=== PATIENT | female | born 1965 | race Caucasian/White ===

== ENCOUNTER 2018-07-29 15:38 | Emergency (ER) | payer OTHER, SELFPAY ==
[2018-07-29 15:56] VITALS: BP 122/87; PULSE 92; RESP 22; TEMP 36.9; O2SAT 98; BMI 25.4
--- NOTE | 2018-07-29 16:01 | HMH.EDUTC ---
[facility] [place] Impression: Sinusitis Qualifiers: Sinusitis location: unspecified location Chronicity: acute Recurrence: non-recurrent Qualified Code(s): J01.90 - Acute sinusitis, unspecified Disposition: Home, Self-Care Condition on Discharge: Good Instructions: Sinusitis, DI for Sinusitis Additional Instructions: Drink plenty of fluids. Take tylenol or ibuprofen for pain or fever Take all the antibiotics as prescribed. Don't take the oral steroids until tomorrow since you had the shot in here today. Follow up with your regular doctor. GO TO THE ER FOR ANY WORSENING OR LIFE THREATENING SYMPTOMS Prescriptions: Ondansetron [Zofran 4mg ODT] 4 mg PO Q8HP PRN #20 tab.rapdis PRN Reason: Nausea methylPREDNISolone [Medrol] 4 mg PO DIRECTED 6 Days #21 tab.ds.pk Cefdinir [Omnicef 300mg Capsule] 300 mg PO BID #20 cap Benzonatate [Tessalon Perle 100mg Cap] 100 mg PO TIDP PRN #30 cap PRN Reason: Cough Referrals: Provider,Referral, MD [Primary Care Provider] - Forms: Work/School Release Time of Disposition: 16:16 Medical Decision Making - Medical Records Medical records reviewed: Yes: I reviewed the patient's medical records. - Robin Inquiry Pt receiving controlled substance: No Robin was queried for this patient: No Vital Signs: 07/29/18 15:56 07/29/18 16:22 Temperature 98.5 F 98.5 F Temperature Source Oral Pulse Rate 92 H Pulse Rate [Left Radial] 92 H Respiratory Rate 22 22 Blood Pressure 122/87 Blood Pressure [Left Arm] 122/87 Blood Pressure Mean [Left Arm] 98 Blood Pressure Source [Left Arm] Automatic Cuff Blood Pressure Position [Left Arm] Sitting 02 Sat by Pulse Oximetry 98 Oxygen Delivery Method Room Air Orders (Tests/Meds): ED MEDICATIONS Discontinued Medications Generic Name Dose Route Start Last Admin Trade Name Freq PRN Reason Stop Dose Admin Ceftriaxone Sodium 1 gm 07/29/18 16:02 07/29/18 16:14 Rocephin 1gm Vial IM 07/29/18 16:03 1 gm ONCE ONE Administration Protocol Lidocaine HCl 0 ml 07/29/18 16:02 07/29/18 16:14 Lidocaine 1% 10ml Mdv IM 07/29/18 16:03 2.1 ml ONCE ONE Administration Methylprednisolone Sodium Succinate 125 mg 07/29/18 16:02 07/29/18 16:15 Solu-Medrol 125mg/2ml Vial IM 07/29/18 16:03 125 mg ONCE ONE Administration [facility] [place] - General Stated complaint: head stopped up and soa Time Seen by Provider: 07/29/18 15:58 Mode of Arrival: Ambulatory Source of Information: Patient Limitations: No Limitations Description of Symptoms (Recalled from Triage Doc. by RN): C/O SORE THROAT, CHILLS, CHEST DISCOMFORT CAUSED BY COUGHING HEENT Symptoms (Recalled from RN notes): Yes (SORE THROAT) Resp Symptoms (Recalled from RN notes): Yes (COUGH) Skin Symptoms (Recalled from RN notes): No MS Symptoms (Recalled from RN notes): No Functional Status (Recalled from RN notes): N/A - Related Data Home Medications Medication Instructions Recorded Confirmed buPROPion HCl [Wellbutrin SR 150mg 150 mg PO BID 04/21/18 04/21/18 Tablet] cloNIDine HCl [cloNIDine 0.2mg 0.2 mg PO DAILY 04/21/18 04/21/18 Tablet] Previous Rx's Medication Instructions Recorded Ibuprofen [Ibuprofen 600mg 600 mg PO Q6HP PRN #30 tab 04/21/18 Tablet] Benzonatate [Tessalon Perle 100mg 100 mg PO TIDP PRN #30 cap 07/29/18 Cap] Cefdinir [Omnicef 300mg Capsule] 300 mg PO BID #20 cap 07/29/18 Ondansetron [Zofran 4mg ODT] 4 mg PO Q8HP PRN #20 tab.rapdis 07/29/18 methylPREDNISolone [Medrol] 4 mg PO DIRECTED 6 Days #21 07/29/18 tab.ds.pk Allergies Allergy/AdvReac Type Severity Reaction Status Date / Time No Known Allergies Allergy Verified 04/21/18 19:03 - Worker's Comp Is this a Worker's Comp case?: No [facility] History - Hepatitis A Screen Drug use history?: No High risk sexual behaviors?: No History of sexually transmitted infection?: No Currently employed?: No Childcare worker?:
--- NOTE | 2018-07-29 16:04 | ED_ITS ---
[facility] [place] Clinical Impression: Sinusitis Qualifiers: Sinusitis location: unspecified location Chronicity: acute Recurrence: non- recurrent Qualified Code(s): J01.90 - Acute sinusitis, unspecified Disposition: Home, Self-Care Condition on Discharge: Good Instructions: Sinusitis, DI for Sinusitis Additional Instructions: Drink plenty of fluids. Take tylenol or ibuprofen for pain or fever Take all the antibiotics as prescribed. Don't take the oral steroids until tomorrow since you had the shot in here today. Follow up with your regular doctor. GO TO THE ER FOR ANY WORSENING OR LIFE THREATENING SYMPTOMS Prescriptions: Ondansetron [Zofran 4mg ODT] 4 mg PO Q8HP PRN #20 tab.rapdis PRN Reason: Nausea methylPREDNISolone [Medrol] 4 mg PO DIRECTED 6 Days #21 tab.ds.pk Cefdinir [Omnicef 300mg Capsule] 300 mg PO BID #20 cap Benzonatate [Tessalon Perle 100mg Cap] 100 mg PO TIDP PRN #30 cap PRN Reason: Cough Referrals: Provider,Referral, MD [Primary Care Provider] - Forms: Work/School Release Time of Disposition: 16:16 Medical Decision Making - Medical Records Medical records reviewed: Yes: I reviewed the patient's medical records. - Robin Inquiry Pt receiving controlled substance: No Robin was queried for this patient: No Vital Signs: 07/29/18 15:56 07/29/18 16:22 Temperature 98.5 F 98.5 F Temperature Source Oral Pulse Rate 92 H Pulse Rate [Left Radial] 92 H Respiratory Rate 22 22 Blood Pressure 122/87 Blood Pressure [Left Arm] 122/87 Blood Pressure Mean [Left Arm] 98 Blood Pressure Source [Left Arm] Automatic Cuff Blood Pressure Position [Left Arm] Sitting 02 Sat by Pulse Oximetry 98 Oxygen Delivery Method Room Air Orders (Tests/Meds): ED MEDICATIONS Discontinued Medications Generic Name Dose Route Start Last Admin Trade Name Freq PRN Reason Stop Dose Admin Ceftriaxone Sodium 1 gm 07/29/18 16:02 07/29/18 16:14 Rocephin 1gm Vial IM 07/29/18 16:03 1 gm ONCE ONE Administration Protocol Lidocaine HCl 0 ml 07/29/18 16:02 07/29/18 16:14 Lidocaine 1% 10ml Mdv IM 07/29/18 16:03 2.1 ml ONCE ONE Administration Methylprednisolone Sodium Succinate 125 mg 07/29/18 16:02 07/29/18 16:15 Solu-Medrol 125mg/2ml Vial IM 07/29/18 16:03 125 mg ONCE ONE Administration [facility] [place] HPI - General Stated complaint: head stopped up and soa Time Seen by Provider: 07/29/18 15:58 Mode of Arrival: Ambulatory Source of Information: Patient Limitations: No Limitations Description of Symptoms (Recalled from Triage Doc. by RN): C/O SORE THROAT, CHILLS, CHEST DISCOMFORT CAUSED BY COUGHING HEENT Symptoms (Recalled from RN notes): Yes (SORE THROAT) Resp Symptoms (Recalled from RN notes): Yes (COUGH) Skin Symptoms (Recalled from RN notes): No MS Symptoms (Recalled from RN notes): No Functional Status (Recalled from RN notes): N/A - Related Data Home Medications Medication Instructions Recorded Confirmed buPROPion HCl [Wellbutrin SR 150mg 150 mg PO BID 04/21/18 04/21/18 Tablet] cloNIDine HCl [cloNIDine 0.2mg 0.2 mg PO DAILY 04/21/18 04/21/18 Tablet]
[2018-07-29 16:22] VITALS: BP 122/87; PULSE 92; RESP 22; TEMP 36.9; O2SAT 98
== END 2018-07-29 16:23 | disposition home or self-care (01) ==
LOC: ER 15:42 → UTC 15:45
PROVIDERS: Emergency Provider Nurse Practitioner Family
DX: J01.90 Acute sinusitis, unspecified (principal)
CPT/HCPCS: 96372; 99201

== ENCOUNTER 2018-08-12 20:01 | Emergency (ER) | payer OTHER, SELFPAY ==
[2018-08-12 20:03] VITALS: BP 155/97; PULSE 99; RESP 16; TEMP 36.8; O2SAT 97; BMI 24.2
--- NOTE | 2018-08-12 20:32 | PC.NURSE ---
PT DID NOT WANT TO WAIT ON CHEST XRAY
--- NOTE | 2018-08-12 20:33 | HMH.EDUTC ---
[facility] [place] Clinical Impression: Bronchitis Otitis media Qualifiers: Otitis media type: suppurative Chronicity: acute Laterality: left Recurrence: non-recurrent Spontaneous tympanic membrane rupture: without spontaneous rupture Qualified Code(s): H66.002 - Acute suppurative otitis media without spontaneous rupture of ear drum, left ear Disposition: Home, Self-Care Condition on Discharge: Good Instructions: Middle Ear Infection, Acute Bronchitis, DI for Acute Bronchitis Additional Instructions: Drink plenty of fluids. Take tylenol or ibuprofen for pain or fever Take all the antibiotics as prescribed. Follow up with your regular doctor. GO TO THE ER FOR ANY WORSENING OR LIFE THREATENING SYMPTOMS Prescriptions: Doxycycline Hyclate [Doxycycline 100mg Capsule] 100 mg PO BID 10 Days #20 cap predniSONE [Prednisone 20mg Tab] 20 mg PO DAILY 9 Days #12 tab Referrals: Provider,Referral, [Primary Care Provider] - Forms: Work/School Release Time of Disposition: 20:37 Medical Decision Making - Medical Records Medical records reviewed: Yes: I reviewed the patient's medical records. - Robin Inquiry Pt receiving controlled substance: No Robin was queried for this patient: No Vital Signs: 08/12/18 20:03 08/12/18 21:05 Temperature 98.3 F 98.3 F Temperature Source Oral Oral Pulse Rate 99 H Pulse Rate [Left Radial] 99 H Respiratory Rate 16 16 Blood Pressure 155/97 H Blood Pressure [Right Arm] 155/97 H Blood Pressure Mean [Right Arm] 116 Blood Pressure Source Automatic Cuff Blood Pressure Source [Right Arm] Automatic Cuff Blood Pressure Position Sitting Blood Pressure Position [Right Arm] Sitting 02 Sat by Pulse Oximetry 97 Oxygen Delivery Method Room Air Room Air Orders (Tests/Meds): ED MEDICATIONS Discontinued Medications Generic Name Dose Route Start Last Admin Trade Name Freq PRN Reason Stop Dose Admin Ceftriaxone Sodium 1 gm 08/12/18 20:31 08/12/18 20:38 Rocephin 1gm Vial IM 08/12/18 20:32 1 gm ONCE ONE Administration Protocol Lidocaine HCl 0 ml 08/12/18 20:31 08/12/18 20:38 Lidocaine 1% 10ml Mdv IM 08/12/18 20:32 2.1 ml ONCE ONE Administration Methylprednisolone Sodium Succinate 125 mg 08/12/18 20:31 08/12/18 20:38 Solu-Medrol 125mg/2ml Vial IM 08/12/18 20:32 125 mg ONCE ONE Administration ORDERS Category Date Time Status Chest XR 2 view (NOT portable) [XR chest 2V] Stat Exams 08/12/18 20:12 Stop Req [facility] [place] - General Stated complaint: ears Time Seen by Provider: 08/12/18 20:33 Mode of Arrival: Ambulatory Source of Information: Patient Limitations: No Limitations Description of Symptoms (Recalled from Triage Doc. by RN): LEFT EAR PAIN THAT STARTED THIS MORNING. STATES SHE ISN'T FEELING BETTER FROM PREVIOUS VISIT HEENT Symptoms (Recalled from RN notes): Yes Resp Symptoms (Recalled from RN notes): Yes Skin Symptoms (Recalled from RN notes): No MS Symptoms (Recalled from RN notes): No Functional Status (Recalled from RN notes): WNL - History of Present Illness Provider Complaint: she states that she did get some better after her last visit here, but over the past 2 days her ear pain has returned. - Related Data Home Medications Medication Instructions Recorded Confirmed buPROPion HCl [Wellbutrin SR 150mg 150 mg PO BID 04/21/18 04/21/18 Tablet] cloNIDine HCl [cloNIDine 0.2mg 0.2 mg PO DAILY 04/21/18 04/21/18 Tablet] Previous Rx's Medication Instructions Recorded Ibuprofen [Ibuprofen 600mg 600 mg PO Q6HP PRN #30 tab 04/21/18 Tablet] Benzonatate [Tessalon Perle 100mg 100 mg PO TIDP PRN #30 cap 07/29/18 Cap] Cefdinir [Omnicef 300mg Capsule] 300 mg PO BID #20 cap 07/29/18 Ondansetron [Zofran 4mg ODT] 4 mg PO Q8HP PRN #20 tab.rapdis 07/29/18 predniSONE [Prednisone 10mg Tab 10 mg PO UD DOSE PK 6 Days #1 pack 08/07/18 Dose-Pack] Doxycycline Hyclate [Doxycycline 100 mg
[2018-08-12 21:05] VITALS: BP 155/97; PULSE 99; RESP 16; TEMP 36.8; O2SAT 97
== END 2018-08-12 21:06 | disposition home or self-care (01) ==
PROVIDERS: Emergency Provider Nurse Practitioner Family
DX: H66.002 Acute suppurative otitis media without spontaneous rupture of ear drum, left ear (principal); J20.9 Acute bronchitis, unspecified
CPT/HCPCS: 96372; 99201

== ENCOUNTER → 2020-03-15 18:16 | Outpatient (CLI) | payer OTHER, SELFPAY ==
[2020-03-15 18:52] LABS: Alanine Aminotransferase 34 U/L (12-78); Albumin Level 4.6 g/dl (3.5-5.0); Albumin/Globulin Ratio 1.3 (1.1-1.8); Alkaline Phosphatase 109 U/L (38-126); Anion Gap 11.6 mEq/L (5-15); Aspartate Amino Transferase 40 U/L (14-36); Bilirubin,Total 0.5 mg/dl (0.2-1.3); Blood Urea Nitrogen 13 mg/dl (7-17); Calcium 9.9 mg/dl (8.4-10.2); Carbon Dioxide 33 mmol/L (22.0-30.0); Chloride 100 mmol/L (98-107); Estimated Glomerular Filt Rate 75 ml/min (>60); GFR (African American) 91 ML/MIN (>60); Globulin 3.5 g/dL (1.3-3.2); Glucose 116 mg/dl (74-100); Potassium 4.6 mmoL/L (3.5-5.1); Sodium 140 mmol/L (136-145); Total Protein,Serum 8.1 g/dl (6.3-8.2)
[2020-03-15 19:25] LABS: Thyroid Stimulating Hormone 1.28 uIU/mL (0.465-4.68)
[2020-03-15 19:49] LABS: Vitamin B12 > 1000 pg/mL (239-931)
== END ==
DX: M62.838 Other muscle spasm (principal); E53.8 Deficiency of other specified B group vitamins; Z13.29 Encounter for screening for other suspected endocrine disorder
CPT/HCPCS: 36415; 80053; 82607; 84439; 84443

== ENCOUNTER 2020-12-26 18:10 | Emergency (ER) | payer OTHER, SELFPAY ==
[2020-12-26 18:50] VITALS: BP 156/84; PULSE 91; RESP 20; TEMP 37.4; O2SAT 95; BMI 24.2
[2020-12-26 19:58] LABS: Coronavirus 19, PCR Not Detected (NotDetected); Influenza A, PCR Not Detected (NotDetected); Influenza B, PCR Not Detected (NotDetected)
--- NOTE | 2020-12-26 20:09 | HMH.EDUTC ---
[facility] [place] Clinical Impression: Head ache Qualifiers: Headache type: unspecified Headache chronicity pattern: acute headache Intractability: not intractable Qualified Code(s): R51.9 - Headache, unspecified Disposition: Still a Patient Condition on Discharge: Fair Referrals: Provider,Referral, [Primary Care Provider] - Time of Disposition: 20:11 Medical Decision Making - Medical Records Medical records reviewed: No: I reviewed the patient's medical records. - Rboin Inquiry Pt receiving controlled substance: No Vital Signs: 12/26/20 18:50 Temperature 99.4 F Temperature Source Oral Pulse Rate [Right Brachial] 91 H Respiratory Rate 20 Blood Pressure [Right Arm] 156/84 H Blood Pressure Mean [Right Arm] 108 Blood Pressure Source [Right Arm] Automatic Cuff Blood Pressure Position [Right Arm] Sitting 02 Sat by Pulse Oximetry 95 Oxygen Delivery Method Room Air Orders (Tests/Meds): ORDERS Category Date Time Status Rapid PCR Covid and Flu A/B Stat Lab 12/26/20 19:51 Received Medical Decision Narrative: she was sent to the er due to the severity of her headache and her unsteadiness when she walks. [facility] [place] HPI - General Stated complaint: chills,vomiting,CAMPO Time Seen by Provider: 12/26/20 19:20 Mode of Arrival: Ambulatory Source of Information: Patient Limitations: No Limitations Description of Symptoms (Recalled from Triage Doc. by RN): PATIENT C/O SEVERE HEADACHE, NAUSEA, WEAKNESS WHEN STANDING, LIGHT-HEADED AND DIZZINESS THAT STARTED YESTERDAY HEENT Symptoms (Recalled from RN notes): Yes Resp Symptoms (Recalled from RN notes): No Skin Symptoms (Recalled from RN notes): No MS Symptoms (Recalled from RN notes): No Functional Status (Recalled from RN notes): WNL - History of Present Illness Provider Complaint: She states that she has been having a very severe head ache since earlier today. She has been dizzy and unsteady on her feet also. She denies any fever, but she does admit to feeling very bad. - Related Data Home Medications Medication Instructions Recorded Confirmed buPROPion HCL [Wellbutrin SR 150mg 150 mg PO BID 04/21/18 12/26/20 Tablet] cloNIDine HCL [cloNIDine 0.2mg 0.2 mg PO DAILY 04/21/18 12/26/20 Tablet] Buprenorphine HCl/Naloxone HCl 1.5 each SL DAILY 12/26/20 12/26/20 [Buprenorphin-Naloxon 8-2 mg Sl] Allergies Allergy/AdvReac Type Severity Reaction Status Date / Time No Known Allergies Allergy Verified 04/21/18 19:03 - Worker's Comp Is this a Worker's Comp case?: No [facility] History - Hepatitis A Screen Drug use history?: No High risk sexual behaviors?: No History of sexually transmitted infection?: No Currently employed?: No Childcare worker?: No Do you have indoor plumbing?: Yes Do you have electricity?: Yes Attestation statement:: This patient has been screened for Hepatitis A risk factors. I have reviewed the patient's past medical history: Yes Laterality Cases: Bilateral: Tonsillectomy - Social History Smoking Status: Never smoker Alcohol Intake: never Occupational Status: other Housing: house ROS Obtained: Yes All systems reviewed & no additional complaints - Constitutional Constitutional: Reports as per HPI - Eyes Eyes: Reports blurry vision, Denies eye discharge - ENT Ears, Nose, Mouth, and Throat: Reports dizziness, Reports otalgia, Denies sore throat, Reports vertigo/dizziness - Cardiovascular Cardiovascular: Denies chest pain - Respiratory Respiratory: Denies chest congestion, Reports cough, Denies dyspnea, Denies stridor, Denies wheezing - Gastrointestinal Gastrointestingal: Reports: nausea. Denies: abdominal pain, diarrhea, vomiting Physical Exam - General General appearance: alert, in no apparent distress - Head Head exam: atraumatic, normocephalic, normal inspection - Eye Eye exam: Present: normal appearance, PERRL, EOMI - ENT ENT exam: Present: normal exam, normal oropharynx, mucous mem
--- NOTE | 2020-12-26 20:10 | PC.NURSE ---
PATIENT SENT TO ER PER Tara FERGUSON APRN FOR FURTHER EVALUATION. REPORT GIVEN TO Marion TILLMAN RN
[2020-12-26 20:20] VITALS: BP 149/80; PULSE 90; RESP 18; TEMP 37.6; O2SAT 98; BMI 24.2
[2020-12-26 20:20] LABS: UTC Strep Screen (Rapid) Negative (Negative)
--- NOTE | 2020-12-26 20:28 | PC.NURSE ---
NIH score of 0
[2020-12-26 20:48] LABS: Basophils % 0.5 % (0.1-2.0); Eosinophils # 0.1 K/mm3 (0.0-0.4); Eosinophils % 0.7 % (0.1-12.0); Hemoglobin 14.2 g/dL (12.2-16.2); Lymphocytes # 0.9 K/mm3 (0.7-4.5); Lymphocytes % 12.6 % (10-50); Mean Corpuscular HGB Conc 33.9 g/dL (31.8-35.4); Mean Corpuscular Hemoglobin 29.8 pg (27.0-31.2); Mean Platelet Volume 7.6 fl (7.4-10.4); Monocytes # 0.4 K/mm3 (0.1-1.0); Monocytes % 5.8 % (1.7-9.3); Neutrophils # 5.8 K/mm3 (1.8-7.8); Neutrophils % 80.5 % (37.0-80.0); Platelet Count 321 K/mm3 (142-424); Red Blood Count 4.77 M/mm3 (4.20-5.40); White Blood Count 7.2 K/mm3 (4.8-10.8)
[2020-12-26 20:54] LABS: Alanine Aminotransferase 17 U/L (12-78); Albumin Level 4.2 g/dl (3.5-5.0); Albumin/Globulin Ratio 1.2 (1.1-1.8); Alkaline Phosphatase 111 U/L (38-126); Aspartate Amino Transferase 35 U/L (14-36); Bilirubin,Total 0.8 mg/dl (0.2-1.3); Blood Urea Nitrogen 10 mg/dl (7-17); Calcium 9.4 mg/dl (8.4-10.2); Carbon Dioxide 30 mmol/L (22.0-30.0); Chloride 100 mmol/L (98-107); Creatinine Clearance Estimated 92 mL/min (50-200); Estimated Glomerular Filt Rate 104 ml/min (>60); GFR (African American) 126 ML/MIN (>60); Globulin 3.4 g/dL (1.3-3.2); Glucose 112 mg/dl (74-100); Total Protein,Serum 7.6 g/dl (6.3-8.2)
--- NOTE | 2020-12-26 20:58 | PC.NURSE ---
Pt. refused CT scan. MD bhatti.
[2020-12-26 20:59] LABS: C-Reactive Protein 14.9 mg/L (0-4)
[2020-12-26 21:02] LABS: Sodium 138 mmol/L (136-145)
[2020-12-26 21:12] LABS: Procalcitonin 0.077 ng/mL (0.0-2.0)
[2020-12-26 21:21] LABS: Erythrocyte Sedimentation Rate 57 mm/hr (0-30)
--- NOTE | 2020-12-26 21:25 | HMH.EDHA ---
ED Disposition Clinical Impression: Head ache Qualifiers: Headache type: unspecified Headache chronicity pattern: acute headache Intractability: not intractable Qualified Code(s): R51.9 - Headache, unspecified Disposition: Home, Self-Care Condition on Discharge: Good Instructions: DI for Headache Additional Instructions: call pcp in am and trial of meds Prescriptions: cephALEXin [cephALEXin 500mg capsule*] 500 mg PO TID #30 cap Transmission Status: Pending to [facility] predniSONE [Prednisone 20mg Tab] 20 mg PO BID #10 tab Transmission Status: Pending to [facility] Ketorolac Tromethamine [Toradol 10mg tablet] 10 mg PO Q6HP PRN #8 tab MDD 40mg/day PRN Reason: Moderate To Severe Pain Transmission Status: Pending to [facility] Referrals: Provider,Referral, [Primary Care Provider] - - Critical Care Critical Care Time: No Attestation: On 12/26/20, the high probability of a clinically significant, sudden or life threatening deterioration of the following system(s) required my full and direct attention, intervention and personal management. The time I documented below is in addition to time spent performing reported procedures but includes the following listed in this critical care notation. Medical Decision Making - Medical Records Medical records reviewed: Yes: I reviewed the patient's medical records. - Robin Inquiry Pt receiving controlled substance: No Vital Signs: 12/26/20 18:50 12/26/20 20:20 Temperature 99.4 F 99.6 F Temperature Source Oral Oral Pulse Rate [Right Brachial] 91 H 90 Respiratory Rate 20 18 Blood Pressure [Right Arm] 156/84 H 149/80 H Blood Pressure Mean [Right Arm] 108 103 Blood Pressure Source [Right Arm] Automatic Cuff Automatic Cuff Blood Pressure Position [Right Arm] Sitting Sitting 02 Sat by Pulse Oximetry 95 98 Oxygen Delivery Method Room Air Room Air - Lab Data Lab results reviewed: Yes: I reviewed the patient's lab results. Lab Results 12/26/20 19:40: Strep Scn [facility] Negative 12/26/20 19:51: SARS-CoV-2 (PCR) Not detected, Influenza A Untype (PCR) Not detected, Influenza Type B (PCR) Not detected 12/26/20 20:30: WBC 7.2, RBC 4.77, Hgb 14.2, Hct 42.0, MCV 88.0, MCH 29.8, MCHC 33.9, RDW 13.0, Plt Count 321, MPV 7.6, Neut % (Auto) 80.5 H, Lymph % (Auto) 12.6, [place] % (Auto) 5.8, Eos % (Auto) 0.7, Baso % (Auto) 0.5, Neut # (Auto) 5.8, Lymph # (Auto) 0.9, [place] # (Auto) 0.4, Eos # (Auto) 0.1, Baso # (Auto) 0.0, ESR 57 H 12/26/20 20:30: Sodium 138, Potassium 4.0, Chloride 100, Carbon Dioxide 30, Anion Gap 12.0, BUN 10, Creatinine 0.60, Estimated Creat Clear 92, Estimated GFR 104, Est GFR ( Amer) 126, Glucose 112 H, Calcium 9.4, Total Bilirubin 0.8, AST 35, ALT 17, Alkaline Phosphatase 111, C-Reactive Protein 14.9 H, Total Protein 7.6, Albumin 4.2, Globulin 3.4 H, Albumin/Globulin Ratio 1.2, Procalcitonin 0.077 Result diagrams: 12/26/20 20:30 12/26/20 20:30 Orders (Tests/Meds): ED MEDICATIONS Generic Name Dose Route Start Last Admin Trade Name Freq PRN Reason Stop Dose Admin Ceftriaxone Sodium 1 gm/ 50 mls @ 100 mls/hr 12/26/20 21:45 12/26/20 21:53 Sodium Chloride IV 01/09/21 21:44 100 mls/hr Q24H TREVOR Administration Discontinued Medications Generic Name Dose Route Start Last Admin Trade Name Freq PRN Reason Stop Dose Admin Lactated Ringer's 1,000 mls @ 999 mls/hr 12/26/20 20:30 12/26/20 20:35 Lactated Ringer's 1000 Ml Bag IV 12/26/20 21:30 999 mls/hr .Q1H1M TREVOR Administration Ketorolac Tromethamine 30 mg 12/26/20 20:29 12/26/20 20:35 Ketorolac 30mg/Ml Vial IV 12/26/20 20:30 30 mg ONCE ONE Administration Methylprednisolone Sodium Succinate 125 mg 12/26/20 20:29 12/26/20 20:35 Methylprednisolone Sod Succ 125mg Vial IV 12/26/20 20:30 125 mg ONCE ONE Administration Ondansetron HCl 4 mg 12/26/20 20:35 12/26/20 20:36 Ondansetron 4mg/2ml Vial IV 12/26/20 20:36 4
[2020-12-26 22:28] VITALS: BP 132/74; PULSE 73; RESP 20; TEMP 36.9; O2SAT 94
== END 2020-12-26 22:35 | disposition home or self-care (01) ==
LOC: UTC 20:11 → ER 20:20
PROVIDERS: Emergency Medicine; Emergency Provider Nurse Practitioner Family
DX: R42 Dizziness and giddiness (principal); R51.9 Headache, unspecified; Z20.822 Contact with and (suspected) exposure to COVID-19
CPT/HCPCS: 80053; 84145; 85025; 85651; 86140; 87040; 87880; 96365; 96375; 99282; C9803; J2405; U0003; U0005

== ENCOUNTER 2024-06-10 17:43 | Outpatient (CLI) | payer BC, SELFPAY ==
--- NOTE | 2024-06-10 17:52 | XR_ITS ---
PROCEDURE INFORMATION: Exam: XR Right Shoulder Exam date and time: 06/10/2024 5:53 PM Age: 58 years old Clinical indication: Other: Chronic bilateral shoulder pain TECHNIQUE: Imaging protocol: Radiologic exam of the right shoulder. Views: 2 or more views. COMPARISON: CR Chest 10/03/2018 4:06 PM FINDINGS: Bones/joints: Normal. Soft tissues: Normal. IMPRESSION: No acute findings.
--- NOTE | 2024-06-10 17:52 | XR_ITS ---
PROCEDURE INFORMATION: Exam: XR Left Shoulder Exam date and time: 06/10/2024 5:53 PM Age: 58 years old Clinical indication: Pain; Shoulder; Bilateral; Additional info: Chronic bilateral shoulder pain TECHNIQUE: Imaging protocol: Radiologic exam of the left shoulder. Views: 2 or more views. COMPARISON: CR XR SHOULDER LT MIN 2V 06/10/2024 5:53 PM FINDINGS: Bones/joints: Small marginal osteophytes and degenerative changes involving the left AC joint. No evidence of acute osseous abnormality. Soft tissues: Normal. IMPRESSION: 1. Small marginal osteophytes and degenerative changes involving the left AC joint. 2. No evidence of acute osseous abnormality.
== END 2024-06-10 23:59 | disposition home or self-care (01) ==
PROVIDERS: PCP Family Medicine; Visit Provider Family Medicine
DX: M25.511 Pain in right shoulder (principal); M25.512 Pain in left shoulder; G89.29 Other chronic pain
CPT/HCPCS: 73030

== ENCOUNTER 2024-12-26 14:07 | Observation (INO) | payer BC, SELFPAY ==
--- OUTSIDE RECORDS SUMMARY | 2023-07-01 11:06 | XMS_ITS | Encounter Summary ---
Author Organization [facility] Address [address] [place] [id number] Care Team Providers Care Pecan Gatherer Name Role Phone Edson Jones MD Primary Care Provider [phone] Encounter Details Date Type Department Care Team (Late Contact Info) Description 07/01/2023 11:06 AM EDT Hospital Encounter [facility] PUL[facility]ITICAL CARE MEDICINE [address] [place] [address] Social History Tobacco Use Types [...] on file documented as of this encounter Functional Status documented as of this encounter Plan of Treatment Upcoming Encounters Date Type Department Care Team (Late st Contact Info) Description 03/27/2025 3:45 PM EST Office Visit [facility] RHE[facility]ATOLOGY [address] [place] [address] Otoniel Krishnamurthy DO [address] [facility] [address] [place] [address] documented as of this encounter Procedures Procedure [...] MD 07/01/2023 4:33 PM EDT Workstation ID: [id number] Narrative 07/01/2023 4:33 PM EDT XR CHEST [...] MD 07/01/2023 4:33 PM EDT Workstation ID: [id number] Stephanie Luo APRN IMG DIAGNOSTIC IMAGING ORDER ERASMO Final Result documented in this encounter Visit Diagnoses Not on filedocumented in this encounter Care Teams Pecan Gatherer Relationship Specialty Start Date End Date Edson Jones MD [address] [place] [address] PCP - General Family Medicine 10/07/22 documented as of this encounter
[2024-12-26] VITALS (13 sets, daily range): BP systolic 113–166; BP diastolic 59–83; PULSE 88–120; RESP 13–19; TEMP 37–37.2; O2SAT 94–99; BMI 26.2; BMI 24.5
--- NOTE | 2024-12-26 13:59 | ECG_ITS ---
APPROVED REPORT Exam: Resting ECG HR:125 bpm ECG Measurements Heart Rate 125 AXES FL 128 P 53 QRSd 70 QRS 45 QT 336 T -50 QTc 410 Conclusion SINUS TACHYCARDIA LOW QRS VOLTAGE IN PRECORDIAL LEADS [QRS DEFLECTION < 1.0 mV IN CHEST LEADS] ST DEVIATION AND MODERATE T-WAVE ABNORMALITY, CONSIDER ANTEROLATERAL ISCHEMIA [-0.1+ mV T-WAVE IN V3-V6] ST DEVIATION AND MODERATE T-WAVE ABNORMALITY, CONSIDER INFERIOR ISCHEMIA [-0.1+ mV T-WAVE IN II/aVF] ABNORMAL ECG UNCONFIRMED REPORT Electronically signed by : DEZ KRUEGER, 12/27/2024 06:27:02
--- NOTE | 2024-12-26 14:22 | ED_ITS ---
<Statement entered by Maged Quinones MD - 12/26/24 20:19> I was consulted by the ROBLES, and we discussed the complexity of the problems being addressed. I approve the treatment and management plan for this patient's care in the emergency department, thus performing a substantive portion of the medical decision making. Maged Quinones MD Discharge Plan Disposition Patient Disposition: Admitted Condition: Fair Prescriptions Prescriptions: No Action bupropion HCl 150 MG Tablet 150 mg PO BID clonidine HCl 0.2 MG Tablet 0.2 mg PO DAILY buprenorphine-naloxone 1 EACH tablet, sublingual 1.5 each SL DAILY prednisone 20 MG tablet 20 mg PO BID Qty: 10 0RF cephalexin 500 MG capsule 500 mg PO TID Qty: 30 0RF ketorolac 10 MG tablet 10 mg PO Q6HP MDD 40mg/day PRN (Reason: Moderate To Severe Pain) Qty: 8 0RF Rx Instructions: Therapy initiated with IV/IM dose Referrals Follow up/Referrals: Edson Jones MD [Primary Care Provider, Medical] - See instructions Clinical Impressions Clinical Impression: Proctocolitis Print Language Print Language: Latvian Discharge ED Provider: Maged Quinones General Adult HPI General Chief complaint: Abdominal Pain Stated complaint: chest pain Time Seen by Provider: 12/26/24 14:21 Mode of Arrival: Ambulatory Source of Information: Patient Description of Symptoms (Recalled from ER Triage Doc. by RN): PT PRESENTS TO ED FOR EPIGASTRIC PAIN WITH NAUSEA AND DIARRHEA THAT BEGAN A FEW HOURS AGO. PT REPORTS PAIN 9/10. History of Present Illness HPI narrative: 59-year-old female presents emergency department with complaints of abdominal pain with diarrhea since approximately 530 this morning. She denies vomiting but reports she has been nauseated. She denies fevers. She reports that she takes Suboxone daily for opiate recovery. She states that she thinks her last bowel movement was approximately 1 week ago. Related Data Home Medications ?Medication ?Instructions ?Recorded ?Confirmed bupropion HCl 150 mg tablet,12 hr 150 mg PO BID Depres donald 04/21/18 12/26/20 sustained-release clonidine HCl 0.2 mg tablet 0.2 mg PO DAILY ANXIETY/HT N 04/21/18 12/26/20 buprenorphine 8 mg-naloxone 2 mg 1.5 each SL DAILY . 1 12/26/20 sublingual tablet Previous Rx's ?Medication ?Instructions ?Recorded cephalexin 500 mg capsule 500 mg PO TID #30 caps 12/26 ketorolac 10 mg tablet 10 mg PO Q6HP PRN Moderate T o 12/26/20 Severe Pain #8 tabs prednisone 20 mg tablet 20 mg PO BID #10 tabs Allergies Allergy/AdvReac Type Severity Reaction Status Date / Time No Known Allergies Allergy Verified 04/21/18 19:03 [facility] Disclaimer: The information contained in this section may have been updated after the patient was seen, as this information can be updated by other users. Social History Smoking Status: Never smoker second hand exposure: No alcohol intake: never current occupational status: other Travel in the last 8 weeks?: None housing: house Have you lived/traveled outside US in past 30 days?: No Contact w/someone who lives/traveled outside US past 30 days?: No Exposure to someone with infectious disease in past 14 days?: No Do you have a fever (greater than 100.4 F or 38 C)?: No Have you tested positive for COVID-19?: No Exposed to someone with COVID-19 in past 14 days?: No Do you have a sore throat?: No Do you have a cough?: No Do you have any weakness?: No Do you have any diarrhea?: No Are you experiencing any unusual bleeding?: No Do you have any muscle aches/pain?: No Do you have any abdominal pain?: No Are you experiencing loss of taste or smell?: No Other Medical History Have you received the Flu Vaccine for this season: No Have you received the Pneumonia Vaccine: No ROS Obtained: Yes other Gastrointestinal Gastrointestingal: Reports abdominal pain, constipation, diarrhea and nausea Physical Exam Narrative Physical exam: General: Awake, aware, in no acute distress HEENT: Normocephalic, no evidence of trauma CV: RRR, no murmurs, rubs, or gallops Pulm: CTA bilaterally with no rhonchi, rales, wheezes ABD: Patient with hypoactive bowel sounds in all quadrants. Patient reports tenderness on palpation of all quadrants as well. Psych, appropriate mood and affect General General appearance: alert Respiratory Respiratory exam: Present normal lung sounds bilaterally Cardiovascular Cardiovascular exam: Present regular rate Neurological Exam Neurological exam: Present alert Medical Decision Making Medical Records Screening: Per USPSTF and CDC recommendations, given the prevalence of disease in our region, it is our hospital?s policy to screen for HIV and viral Hepatitis for all patients aged 18 and over and those with ongoing risk factors. Robin Inquiry Pt receiving controlled substance: No Vital Signs: 12/26/24 14:09 12/26/24 14:09 12/26/24 14:15 Temperature 98.9 F 98.9 F Temperature Source Oral Pulse Rate 120 H 111 H Pulse Rate [Right] 120 H Respiratory Rate 18 18 19 Blood Pressure 166/81 H 157/81 H Blood Pressure [Left Arm] 166/81 H Blood Pressure Mean [Left Arm] 109 02 Sat by Pulse Oximetry 96 96 94 L 12/26/24 14:30 12/26/24 14:45 12/26/24 15:00 Temperature Temperature Source Pulse Rate 111 H 100 H 98 H Pulse Rate [Right] Respiratory Rate 14 14 17 Blood Pressure 149/83 H 144/76 H 123/65 Blood Pressure [Left Arm] Blood Pressure Mean [Left Arm] 02 Sat by Pulse Oximetry 94 L 97 94 L 12/26/24 15:15 12/26/24 15:30 12/26/24 16:00 Temperature Temperature Source Pulse Rate 94 H 95 H 96 H Pulse Rate [Right] Respiratory Rate 18 18 14 Blood Pressure 122/64 115/62 115/61 Blood Pressure [Left Arm] Blood Pressure Mean [Left Arm] 02 Sat by Pulse Oximetry 95 97 96 12/26/24 16:15 Temperature Temperature Source Pulse Rate 96 H Pulse Rate [Right] Respiratory Rate 13 Blood Pressure 119/63 Blood Pressure [Left Arm] Blood Pressure Mean [Left Arm] 02 Sat by Pulse Oximetry 94 L Lab Data Lab Results 12/26/24 14:25: WBC 22.3 H*, RBC 5.00, Hgb 15.0, Hct 43.5, MCV 87.0, MCH 30.0, MCHC 34.5, RDW 11.9, Plt Count 437 H, MPV 9.3, Neut % (Auto) 91.6 H, Lymph % (Auto) 3.0 L, [place] % (Auto) 4.7, Eos % (Auto) 0.0 L, Baso % (Auto) 0.2, Neut # (Auto) 20.5 H, Lymph # (Auto) 0.7, [place] # (Auto) 1.1 H, Eos # (Auto) 0.0, Baso # (Auto) 0.1, Total Counted 100, Neutrophils % (Manual) 88 H, Band Neutrophils % 3.0, Lymphocytes % (Manual) 5 L, Monocytes % (Manual) 4, Platelet Estimate Normal, RBC Morphology Normal, Sodium 135 L, Potassium 3.9, Chloride 100, Carbon Dioxide 28, Anion Gap 10.9, BUN 22 H, Creatinine 0.80, Estimated Creat Clear 71, Estimated GFR 74, Est GFR ( Amer) 89, Glucose 170 H, Calcium 9.0, Magnesium 2.0, Total Bilirubin 0.7, AST 37 H, ALT 31, Alkaline Phosphatase 123, Total Protein 7.8, Albumin 3.4 L, Globulin 4.4 H, Albumin/Globulin Ratio 0.8 L, Lipase 56 12/26/24 15:35: Lactate 2.0 12/26/24 16:25: Urine Color Yellow, Urine Appearance Clear, Urine pH 5.0, Ur Specific [place] >= 1.030, Urine Protein Negative, Urine Glucose (UA) Negative, Urine Ketones Trace, Urine Blood Negative, Urine Nitrate Negative, Urine Bilirubin 2+ A, Urine Urobilinogen 1.0, Ur Leukocyte Esterase Negative, Urine RBC None, Urine WBC Occasional, Ur Squamous Epith Cells None, Calcium Oxalate Crystal 1+, Urine Bacteria Trace 12/26/24 14:25 12/26/24 14:25 Orders (Tests/Meds): ED MEDICATIONS Discontinued Medications Generic Name Dose Route Start Last Admin Trade Name Freq PRN Reason Stop Dose Admin Dicyclomine HCl 20 mg 12/26/24 16:53 12/26/24 17:34 Dicyclomine 20 Mg/2ml Vial IM 12/26/24 16:54 20 mg ONCE ONE Administration Sodium Chloride 1,000 mls @ 999 mls/hr 12/26/24 14:22 12/26/24 16:10 Sod Chlor 0.9% 1000ml Bag IV 12/26/24 15:22 Infused .Q1H1M ONE Infusion Iopamidol 75 ml 12/26/24 16:39 12/26/24 16:40 Iopamidol-370 (76%);100ml Bottle IV 12/26/24 16:40 75 ml ONCE ONE Administration Ketorolac Tromethamine 15 mg 12/26/24 14:27 12/26/24 14:41 Ketorolac 15mg/Ml Vial IV 12/26/24 14:28 15 mg ONCE ONE Administration Ondansetron HCl 4 mg 12/26/24 14:27 12/26/24 14:40 Ondansetron 4mg/2ml Vial IV 12/26/24 14:28 4 mg ONCE ONE Administration Ondansetron HCl 4 mg 12/26/24 16:50 12/26/24 17:34 Ondansetron 4mg/2ml Vial IV 12/26/24 16:51 4 mg ONCE ONE Administration Sodium Chloride 10 ml 12/26/24 16:39 12/26/24 16:40 Sodium Chloride 0.9% 10ml Syr (Rad Only) IV 12/26/24 16:40 10 ml ONCE ONE Administration ORDERS Category Date Time Status CT abdomen pelvis w con Stat Cat Scan 12/26/24 14:23 Completed CBC w/Auto Diff [Complete Blood Count Auto Diff] Stat Lab 12/26/24 14:25 Completed CMP [Comprehensive Metabolic Panel] Stat Lab 12/26/24 14:25 Completed Lactic Acid Stat Lab 12/26/24 15:35 Completed Lipase Stat Lab 12/26/24 14:25 Completed Magnesium Stat Lab 12/26/24 14:25 Completed Urinalysis and Microscopic Stat Lab 12/26/24 16:25 Completed Blood Culture Stat Micro 12/26/24 15:39 Received Medical Decision Narrative: Initial impression of presenting illness: 59-year-old female presents emergency department complaints of abdominal pain with nausea and diarrhea at approximately 530 this morning. She denies fevers. She reports she does take Suboxone for opiate recovery. She reports her last bowel movement was approximately 1 week ago. Differential diagnosis includes but is not limited to: Constipation, bowel obstruction, diverticulitis, gastroenteritis Patient arrives hemodynamically stable, afebrile, without respiratory distress with vital signs interpreted by myself. Initial physical exam reveals hypoactive bowel sounds in all quadrants with diffuse tenderness on palpation of abdomen. Rest of exam is unremarkable. Initial diagnostic plan: Laboratory studies including urinalysis, CT of abdomen pelvis with IV contrast, normal saline bolus for hydration, Zofran for nausea, Toradol for pain Patient's son concerned that patient has something wrong with her right leg. Patient reports that she was bit by something in September and followed up with her primary care provider who recommended she come to ER for IV antibiotics. Patient states she never came to ER for antibiotics. She reports that intermittently she will have erythema and pain to her leg. I do not appreciate any abnormalities on today's exam. Sensations intact with 2+ pulses. No tenderness on palpation of the leg. Results from initial plan were reviewed and interpreted by myself, pertinent positives include: White blood cell count 22.3, rest of laboratory studies including lactic acid was negative. No evidence of urinary tract infection. CT of abdomen pelvis with IV contrast shows severe proctocolitis likely of infectious/inflammatory etiology. There is also enlarged lymph nodes in the right inguinal region, right pelvic sidewall, and right external iliac chain. Interventions in the ED: Patient was given normal saline bolus for hydration as well as Toradol and Bentyl for pain and Zofran for nausea. Patient was made aware of the results and the findings, upon reevaluation patient has remained stable throughout stay, symptoms are unchanged at this time. Patient continues to complain of nausea abdominal pain. Consultation/discussion with other physicians: Spoke with hospitalist Dr. Ness regarding patient's workup findings and presenting complaint. He was agreeable to accept patient to [facility] for further treatment of her infection recommended starting patient on meropenem 1 g Q8. Disposition: Reviewed findings today's workup with patient and informed her that she has severe proctocolitis. Patient states she is not feeling any better and does not feel that she is safe to go home. Advised patient that we will admit her to [facility] for treatment of her infection. Patient was agreeable to admission at this time. Critical Care Critical Care Time Critical Care Time: No
--- NOTE | 2024-12-26 14:23 | CT_ITS ---
PROCEDURE INFORMATION: Exam: CT Abdomen And Pelvis With Contrast Exam date and time: 12/26/2024 4:36 PM Age: 59 years old Clinical indication: Abdominal pain; Additional info: Abd pain TECHNIQUE: Imaging protocol: Computed tomography of the abdomen and pelvis with contrast. Radiation optimization: All CT scans at this facility use at least one of these dose optimization techniques: automated exposure control; mA and/or kV adjustment per patient size (includes targeted exams where dose is matched to clinical indication); or iterative reconstruction. Contrast material: ISOVUE; Contrast volume: 75 ml; Contrast route: IV; COMPARISON: CT - ABDPELW CT abdomen pelvis w con 10/03/2018 3:59 PM FINDINGS: Lungs: Lung bases are clear. Diaphragm: Small hiatal hernia. Liver: 1.4 cm hypodense lesion in the right hepatic lobe (series 3, image 38), previously 1 cm. Stable 5 mm focus of hyperenhancement in the right lower lobe (series 3, image 28). Nonemergent ultrasound follow-up is recommended. The liver is otherwise unremarkable. Gallbladder and biliary ducts: Gallbladder is normal. Slightly prominent 8 mm CBD. No radiopaque filling defects. Most probably physiologic, though consider correlation with biliary levels. Pancreas: The pancreas is normal. Spleen: The spleen is normal. An accessory splenule is present. Adrenal glands: Adrenal glands are normal in size and morphology. No masses or suspicious nodules. Kidneys and ureters: The kidneys are normal. No hydroureter. Stomach and bowel: Mucosal hyperenhancement and wall thickening throughout the rectum, sigmoid, descending, transverse, and ascending colon. No other bowel wall thickening. There is no evidence of intestinal obstruction. Stomach is decompressed and difficult to evaluate. Duodenum is unremarkable. Appendix: A normal appendix is identified. Intraperitoneal space: There is no evidence of free intraperitoneal or pelvic fluid. No intraperitoneal fluid collections. There is no free intraperitoneal air. Vasculature: Portal venous system is patent. The vasculature is normal. Lymph nodes: Enlarged lymph nodes in the right inguinal region, right pelvic sidewall, and right external iliac chain measuring 1.3 cm, 8 mm, and 9 mm respectively. No other adenopathy. Urinary bladder: Bladder is decompressed and difficult to evaluate. Reproductive: There has been a hysterectomy. Bones/joints: Mild multilevel degenerative changes of the spine. No acute skeletal abnormality or aggressive osseous lesion. Soft tissues: No acute soft tissue findings. IMPRESSION: 1. Severe proctocolitis, likely of infectious/inflammatory etiology. 2. Enlarged lymph nodes in the right inguinal region, right pelvic sidewall, and right external iliac chain measuring 1.3 cm, 8 mm, and 9 mm respectively. Most consistent with reactive nodes. 3. Incidental findings as above.
[2024-12-26 14:29] LABS: Hematocrit 43.5 % (37.0-47.0); Hemoglobin 15.0 g/dL (12.2-16.2); Immature Granulocytes % 0.5 %; Mean Corpuscular HGB Conc 34.5 g/dL (31.8-35.4); Mean Corpuscular Hemoglobin 30.0 pg (27.0-31.2); Mean Corpuscular Volume 87.0 fl (81-99); Nucleated Red Blood Cells % 0 %; Platelet Count 437 K/mm3 (142-424); Red Blood Count 5.00 M/mm3 (4.20-5.40); Red Cell Distribution Width-SD 38.0 fL
[2024-12-26 14:31] LABS: Albumin Level 3.4 g/dl (3.5-5.0); Chloride 100 mmol/L (98-107); Potassium 3.9 mmoL/L (3.5-5.1); Sodium 135 mmol/L (136-145)
[2024-12-26 14:33] LABS: Alanine Aminotransferase 31 U/L (12-78); Albumin/Globulin Ratio 0.8 (1.1-1.8); Alkaline Phosphatase 123 U/L (38-126); Anion Gap 10.9 mEq/L (5-15); Aspartate Amino Transferase 37 U/L (14-36); Bilirubin,Total 0.7 mg/dl (0.2-1.3); Blood Urea Nitrogen 22 mg/dl (7-17); Carbon Dioxide 28 mmol/L (22.0-30.0); Creatinine Clearance Estimated 71 mL/min (50-200); Creatinine,Serum 0.80 mg/dl (0.52-1.04); Estimated Glomerular Filt Rate 74 ml/min (>60); GFR (African American) 89 ML/MIN (>60); Globulin 4.4 g/dL (1.3-3.2); Total Protein,Serum 7.8 g/dl (6.3-8.2)
[2024-12-26 14:34] LABS: Calcium 9.0 mg/dl (8.4-10.2); Glucose 170 mg/dl (74-100); Lipase 56 U/L (23-300); Magnesium 2.0 mg/dl (1.6-2.3)
[2024-12-26] MEDS: 0.9 % SODIUM CHLORIDE 1000ML 1,000 ML 999 ML IV (14:40)
[2024-12-26] MEDS: ONDANSETRON 4MG/2ML VIAL 4 MG IV ×2 (14:40→17:34)
[2024-12-26] MEDS: KETOROLAC 15MG/ML VIAL 15 MG IV (14:41)
--- OUTSIDE RECORDS SUMMARY | 2024-12-26 14:56 | XMS_ITS ---
Author Organization [facility] Address [address] [place] [address] Care Team Providers Care Armored Vehicle Officer Name Role Phone Edson Jones MD Primary Care Provider [phone] Chronic Migraine - External Program Status:Enrolled (Active) Start date:06/04/2023 Enrollment date:06/04/2023 Enrollment reason:Referred by provider Current support & services provided:Benefits Investigation, Prior Authorization, External Pharmacy Dispensing Linked medications:Ubrogepant (Discontinued) Linked problems:Migraine without aura and without status migrainosus, not intractable (Active) Overview External- Ubrelvy. Ubrelvy. 06/03- Pt still not sure if she wants to fill Ubrelvy in general. She said to send an rx to [facility] and keep on hold. 05/20- Spoke to pt, she wants to research Ubrelvy before letting us fill it. She seems skeptical of it and asked several questions like side effects, how long it's been on [facility], etc. At this time, she most likely will not fill med or fill at [facility]. Case Team Name Relationship Phone Ishaan Saucedo PharmD Pharmacist Brittani Jimenez Environmental Health Officer Public Affairs Officer Continued Care and Services Coordination
--- OUTSIDE RECORDS SUMMARY | 2024-12-26 14:56 | XMS_ITS | Clinical Summary ---
Author Organization [facility] ([place], [place], [place], [place]) Address [address] [place] [address] Care Team Providers Care Day Care Center Director Name Role Phone Unavailable Primary Care Provider Unavailabl e Allergies No known active allergies Medications buprenorphine-nalox one (SUBOXONE) 8-[address] 1 tablet under the tongue daily. 4 Active buPROPion (WELLBUTRIN XL) 150 MG 24 hr tablet Take 1 tablet (150 mg total) by mouth daily. 4 Active cloNIDine HCL (CATAPRES) 0.2 MG tablet Take 1 tablet (0.2 mg total) by mouth. 3 Active cyanocobalamin, vitamin B-12, (B-12 Compliance) 1,000 mcg/mL Kit Inject 1 ml as directed two times per week for one month then once per week. 4 Active ondansetron (ZOFRAN-ODT) 4 MG disintegrating tablet Take by mouth. 4 Active rosuvastatin (CRESTOR) 10 MG tablet Take 1 tablet (10 mg total) by mouth nightly. 4 Active cholecalciferol (VITAMIN D3) 125 mcg (5,000 unit) tablet Take 1 tablet (5,000 Units total) by mouth daily. Active Active Problems No known active problems Family History Medical History Relation Name Comments Heart attack Brother Heart attack Father Coronary artery disease Mother Coronary artery disease Sister Relation Name Status Comments Brother Father Mother Sister Social History Tobacco Use Types Packs/Day Years Used Date Smoking Tobacco: Never Smokeless Tobacco: Never Tobacco Cessation:Counseling Given: Not Answered Alcohol Use Standard Drinks/Week Comments Never 0 (1 standard drink = 0.6 oz pur e alcohol) Food Insecurity Answer Date Recorded Food run out past 12 months Not on file 05/31 Food did not last past 12 months Not on file 06/19/2023 Employment Answer Date Recorded Help finding and keeping a job Not on file 0 06/19/2023 Family and Community Support Answer Yung e Recorded Help with Day to Day Activities Not on file 06/19/2023 Feeling Lonely or Isolated Not on file 06/18 Educational Attainment Answer Date Juan rded Speak language other than Nicaraguan at home Not on file 06/19/2023 Want help with school or training Not on file 06/19/2023 Substance Use Answer Date Recorded Used prescription meds for non-medical reasons N ot on file 06/19/2023 Used illegal drugs past 12 months Not on file 06/19/2023 Comments Unknown Sex and Gender Information Value Date Recorded Sex Assigned at Not on file Legal Sex Female 2:52 PM CDT Gender Identity Not on file Sexual Orientation Not on file Last Filed Vital Signs Vital Sign Reading Time Taken Comments Blood Pressure 110/70 06/23/2023 11:00 AM EDT Pulse 68 06/23/2023 11:00 AM EDT Temperature - - Respiratory Rate - - Oxygen Saturation - - Inhaled Oxygen Concentration - - Weight 57.6 kg (127 lb) 06/23/2023 11:00 AM EDT Height 149.9 cm (4' 11 ) 06/23/2023 11:00 AM EDT Body Mass Index 25.65 06/23/2023 11:00 AM EDT Plan of Treatment Health Maintenance Due Date Last Done Comments CT Colonography 1966 Colonoscopy 1966 Colorectal Cancer Screening 1966 FOBT/FIT 1966 Fit-DNA (Cologuard) 1966 Sigmoidoscopy 1966 Depression Screening (12+) 1978 HIV Screening 1981 Hepatitis C Screening 1984 Pap Smear 12/27/1987 Breast Cancer Screening 2006 Pneumococcal 50+ years (1 of 1 - PCV) 2016 Shingles Vaccine (Zoster) (1 of 2) 2016 Tobacco Cessation Counseling and Screening (12+) 06/2206/23/2023 COVID-19 VACCINE (2023- season) 2024 Influenza Vaccine (#1) 2024 DTAP/TDAP/TD VACCINES (2 - Td or Tdap) 10/30/2025 Lipid Panel 05/19/2028 05/20/[address] [place] [id number] BLUE CROSS/BLUE SHIELD
--- OUTSIDE RECORDS SUMMARY | 2024-12-26 14:56 | XMS_ITS | Encounter Summary ---
Author Organization [facility] Address [address] [place] [address] Care Team Providers Care College Football Coach Name Role Phone Edson Jones MD Primary Care Provider [phone] Reason for Visit * Reason Comments Med Refill Encounter Details Date Type Department Care Team (Late st Contact Info) Description 08/18/2023 Refill [facility] [address] [place] [address] Soledad Wei [address] [place], [place] [id number] Essential hypertension; SHELDON (generalized anxiety disorder); Panic attack Social History Tobacco Use Types Packs/Day Years Used Date Smoking Tobacco: Never Smokeless Tobacco: Never Alcohol Use Standard Drinks/Week Comments No 0 (1 standard drink = 0.6 oz pur e alcohol) PHQ-2 Answer Date Recorded Retired PHQ-9: Brief Depression Severity Measure Score 0 06/16/2022 PHQ-2 Answer Date Recorded Retired PHQ-9: Brief Depression Severity Measure Score 0 06/16/2022 Comments Unknown Sex and Gender Information Value Date Recorded Sex Assigned at Female 06/20/2024 10:43 AM EDT Legal Sex Female 11:04 AM EDT Gender Identity Not on file Sexual Orientation Not on file documented as of this encounter Miscellaneous Notes * Telephone Encounter - Brandi Vega RegSched Rep - 08/18/2023 9:15 AM EDT [employer] WASN'T SET UP TO LEAVE A MESSAGE, SENT MY CHART CHAT FOR PATIENT TO CALL AND SCHEDULE HUB TO RELAY documented in this encounter Plan of Treatment Upcoming Encounters Date Type Department Care Team (Late st Contact Info) Description 03/27/2025 3:45 PM EST Office Visit [facility] RHEUMATOLOGY [address] [address] Otoniel Krishnamurthy DO [address] [id number] documented as of this encounter Visit Diagnoses Diagnosis Essential hypertension Unspecified essential hypertension SHELDON (generalized anxiety disorder) Generalized anxiety disorder Panic attack Panic disorder without agoraphobia documented in this encounter Care Teams College Football Coach Relationship Specialty Start Date End Date Edson Jones MD [address] [place] [address] PCP - General Family Medicine 10/07/22 documented as of this encounter
--- OUTSIDE RECORDS SUMMARY | 2024-12-26 14:56 | XMS_ITS | Encounter Summary ---
[facility] Address [address] [id number] Care Team Providers Care Manager Science Name Role Phone Edson Jones MD Primary Care Provider [phone] Encounter Details Date Type Department Care Team (Late Contact Info) Description 06/14/2024 Results Follow-Up [facility] [address] [place] [address] Edson Jones MD [address] [place] [address] Social History Tobacco Use Types Packs/Day Years Used Date Smoking Tobacco: Never Smokeless Tobacco: Never Alcohol Use Standard Drinks/Week Comments No 0 (1 standard drink = 0.6 oz pur e alcohol) PHQ-2 Answer Date Recorded Retired PHQ-9: Brief Depression Severity Measure Score 0 06/16/2022 PHQ-2 Answer Date Recorded Patient Health Questionnaire-2 Score 0 12/29/2023 Comments Unknown Sex and Gender Information Value Date Recorded Sex Assigned at Female 06/20/2024 10:43 AM EDT Legal Sex Female 11:04 AM EDT Gender Identity Not on file Sexual Orientation Not on file documented as of this encounter Plan of Treatment Upcoming Encounters Date Type Department Care Team (Late st Contact Info) Description 03/27/2025 3:45 PM EST Office Visit [facility] RHEUMATOLOGY [address] [address] Otoniel Krishnamurthy DO [address] [address] documented as of this encounter Visit Diagnoses Not on filedocumented in this encounter Care Teams Manager Science Relationship Specialty Start Date End Date Edson Jones MD [address] [place] [address] PCP - General Family Medicine 10/07/22 documented as of this encounter
--- OUTSIDE RECORDS SUMMARY | 2024-12-26 14:56 | XMS_ITS | Clinical Summary ---
Author Organization Healthcare Address [address] [place] [address] Care Team Providers Care Television Repairman Name Role Phone Unavailable Primary Care Provider Unavailabl e Family History Medical History Relation Name Comments Cardiac disorder Father Colon cancer Maternal Grandmother Cardiac disorder Mother Relation Name Status Comments Father Maternal Grandmother Mother Social History Tobacco Use Types Packs/Day Years Used Date Smoking Tobacco: Never Comments Unknown Sex and Gender Information Value Date Recorded Sex Assigned at Not on file Legal Sex Female 8:21 PM EDT Gender Identity Not on file Sexual Orientation Not on file Last Filed Vital Signs Vital Sign Reading Time Taken Comments Blood Pressure 128/87 06/29/2018 3:30 PM EDT Pulse - - Temperature - - Respiratory Rate - - Oxygen Saturation - - Inhaled Oxygen Concentration - - Weight 53 kg (116 lb 13.5 oz) 06/29/2018 3:30 PM EDT Height 149.9 cm (4' 11 ) 06/29/2018 3:30 PM EDT Body Mass Index 23.6 06/29/2018 3:30 PM EDT Plan of Treatment Health Maintenance Due Date Last Done Comments [facility]-Depression Screening 1966 [facility]-/Child/Adol SDOH Screenings 1966 [facility]- SDOH Screenings 1984 [facility]-Adult SDOH Screenings 1984 [facility]-Pap Smear 12/27/1987 [facility]-Cervical Cancer Screening 1996 [facility]-HPV/Cotest 1996 CT Colonography 12/27/2011 Colonoscopy 12/27/2011 FIT-DNA 12/27/2011 FIT 12/27/2011 FOBT 12/27/2011 Sigmoidoscopy 12/27/2011 [facility]-Colorectal Cancer Screening 12/27/2011 [facility]-Pneumococcal Vaccine: 50 + Years (1 of 1 - PCV) 2016 [facility]-Zoster Vaccines (1 of 2) 2016 [facility]-[id number]-07 Vaccine ( season) 2024 [facility]-Influenza Vaccine (#1) 2024 [facility]-DTaP,Tdap,and Td Vaccine s (2 - Td or Tdap) 10/30/2025 10/31/2015 [facility]-Hepatitis B Vaccines Completed 017, 06/30/2016, 10/31/2015 HPV Vaccines Aged Out No longer eligi ble based on patient's age to complete this topic [facility]-HIB Vaccines Aged Out No longer e ligible based on patient's age to complete this topic [facility]-Hepatitis A Vaccines Aged Out No longer eligible based on patient's age to complete this topic [facility]-IPV Vaccines Aged Out No longer e ligible based on patient's age to complete this topic [facility]-Rotavirus Vaccines Aged Out No lo nger eligible based on patient's age to complete this topic Insurance [facility] [employer] MEDICAID
--- OUTSIDE RECORDS SUMMARY | 2024-12-26 14:56 | XMS_ITS | Clinical Summary ---
Author Organization [facility] Address [address] [place] [address] Care Team Providers Care Tennis Ball Cover Cementer Name Role Phone Edson Jones MD Primary Care Provider [phone] Allergies Active Allergy Reactions Criticality Noted Date Comments Sulfamethoxazole-Trime thoprim Other (See Comments) Medium 10/18/2024 Patient thinks she is allergic to Bactrim unsure of the reaction she had Clindamycin/Lincomycin GI Intolerance Medium Doxycycline GI Intolerance High 10/18/2024 Medications buprenorphine-nalo xone (SUBOXONE) 8-2 MG per SL tablet Place 1 tablet under the tongue Daily. Active ondansetron ODT (ZOFRAN-ODT) 4 MG disintegrating tabletIndications: Nausea Take 1 tablet by mouth Every 8 (Eight) Hours As Needed for Nausea or Vomiting. 15 tablet 2 5 Active cyanocobalamin 1000 MCG/ML injectionIndicatio ns:B12 deficiency INJECT 1 ML UNDER THE SKIN ONCE PER MONTH 1 mL 2 5 Active cloNIDine (CATAPRES) 0.2 MG tabletIndications: Essential hypertension,SHELDON (generalized anxiety disorder),Panic attack TAKE 1 TABLET BY MOUTH EVERY 12 HOURS 180 tablet 1 5 Active buPROPion XL (WELLBUTRIN XL) 150 MG 24 hr tablet TAKE 1 TABLET BY MOUTH EVERY DAY 30 tablet 2 5 Active Restasis 0.05 % ophthalmic emulsion instill 1 drop into each eye twice daily 5 Active vitamin D (ERGOCALCIFEROL) 1.25 MG (32337 UT) capsule capsuleIndications :Vitamin D deficiency Take 1 capsule by mouth 1 (One) Time Per Week. 13 capsule 3 5 Active methylPREDNISolone (MEDROL) 4 MG dose pack Take as directed on package instructions . 1 each 5 Active cephalexin (KEFLEX) 500 MG capsule Take 1 capsule by mouth 3 (Three) Times a Day for 10 days. 30 capsule 5 12/06/19 25 Active Problems Problem Noted Date Diagnosed Date Systemic sclerosis 09/23/2024 Assessment & Plan (09/23/2024 1:59 PM EDT): 05/20/23: FANNY 1:160 speckled, SCL 70 1.7 (<0.9), COMMERCIAL COORDINATOR normal, Jones normal, Chromatin normal, Mitali 1 normal, Centromere normal, Hepatitis panel normal, HIV non reactive, DRVVT negative, RF negative, RPR non reactive, ESR normal, SSA and SSB normal, JOHNNA level 86 08/03/23: SCL 70 +, FANNY +. All other autoimmune tests were normal. Daughter with cutaneous lupus Medications/treatments/interventions tried include: She has seen neurology, Tylenol, she has seen pulmonology, she has seen cardiology, prednisone, cyclobenzaprine, Restasis eye drops We gave her a handout on scleroderma to review. Check labs today Follow up in 6 months She has already previously established with cardiology and pulmonology We recommend she see these specialists once/year for screening for pulmonary HTN and ILD. 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 Garcia monthly x years. Vitamin D deficiency Resolved Problems Problem Noted Date Diagnosed Date Resolved Date Anxiety 11/30/2017 03/13/2020 Depression 11/30/2017 03/13/2020 Overview (11/30/2017): wellbutrin Encounters Date Type Department Care Team Description 11/24/2024 Refill [facility] [address] [place] [address] Edson Jones MD Cellulitis of right lower extremity 10/26/2024 Telephone [facility] NEUROLOGY [address] [place] [address] Cinthia Vo APRN 10/20/2024 2:00 PM EDT Office Visit [facility] [address] [place] [address] Edson Jones MD Cellulitis of right lower extremity (Primary Dx) 10/20/2024 Travel 10/19/2024 Telephone [facility] [address] [facility] [address] [place] [address] Silke Alvarez APRN 10/18/2024 10:00 PM EDT Telemedicine [facility] [address] [facility] [address] [place] [address] Silke Alvarez, CHANG Cellulitis of right lower extremity (Primary Dx) 09/29/2024 Results Follow-Up [facility] RHEUMATOLOGY [address] [place] [address] Otoniel Krishnamurthy, 09/28/2024 Telephone [facility] [address] [place] [address] Cinthia Vo, SENIOR CLINICAL RESEARCH SCIENTIST 09/27/2024 Telephone [facility] [address] [place] [address] Edson Jones MD 09/26/2024 Telephone [facility] [address] [place] [address] Cinthia Vo, SENIOR CLINICAL RESEARCH SCIENTIST 09/25/2024 Results Follow-Up [facility] [address] [place] [address] Mekhi Da Silva MD from Last 3 Months Immunizations Immunization Administration Dates Next Due Hepatitis B 11/24/2016,06/30/2016,10/31/2015 Tdap 10/31/2015 Family History Medical History Relation Name Comments Hypertension Brother 1 Renan Mcdermott 4 stints 6 radha hs ago No Known Problems Brother 2 Heart attack Father Aparna Mcdermott Hypertension Father Aparna Mcdermott 1985 massi ve heart attack age 57 Colon cancer Maternal Grandmother Coronary artery disease Mother Lizz Mcdermott Hyperlipidemia Mother Lizz Mcdermott Hypertension Mother Lizz Mcdermott Stint Hypertension Sister 1 Magdalene Blankenship Stint Thyroid disease Sister 1 Magdalene Blankenship Coronary artery disease Sister 2 Hyperlipidemia Sister 2 Hypertension Sister 2 No Known Problems Sister 3 Relation Name Status Comments Brother 1 Renan Mcdermott Alive Brother 2 Alive Father Aparna Mcdermott Maternal Grandmother Mother Lizz Mcdermott Alive Sister 1 Magdalene Blankenship Alive Sister 2 Alive Sister 3 Alive Social History Tobacco Use Types Packs/Day Years Used Date Smoking Tobacco: Never Smokeless Tobacco: Never Tobacco Cessation:Counseling Given: Yes Alcohol Use Standard Drinks/Week Comments No 0 [...] Sign Reading Time Taken Comments Blood Pressure 118/74 10/20/2024 2:03 PM EDT Pulse 76 10/20/2024 2:03 PM EDT Temperature 36.9 C (98.4 F) 10/20/2024 2:03 PM EDT Respiratory Rate 18 10/20/2024 2:03 PM EDT Oxygen Saturation 98% 09/21/2024 11:35 AM EDT Inhaled Oxygen Concentration - - Weight 57.2 kg (126 lb) 10/20/2024 2:03 PM EDT Height 149.9 cm (4' 11 ) 10/20/2024 2:03 PM EDT Body Mass Index 25.45 10/20/2024 2:03 PM EDT Plan of Treatment Upcoming Encounters Date Type Department Care Team (Late st Contact Info) Description 03/27/2025 3:45 PM EST Office Visit [facility] RHEUMATOLOGY [address] [phone] Otoniel Krishnamurthy DO [address] [address] Health Maintenance Due Date Last Done Comments Annual Gynecologic Pelvic an d Breast Exam 1965 COLOGUARD 12/27/2011 COLON CANCER SCREENING 5 YEA R SIGMOIDOSCOPY 12/27/2011 COLONOSCOPY 12/27/2011 CT COLONOGRAPHY 12/27/2011 FECAL OCCULT BLOOD TEST 12/27/2011 FIT Testing (1 year) 12/27/2011 Pneumococcal Vaccine 50+ (1 of 1 - PCV) 2016 ZOSTER VACCINE (1 of 2) 2016 ANNUAL PHYSICAL 11/30/2017 INFLUENZA VACCINE 09/30/2024 LIPID PANEL 01/25/2025 01/26/2024, 05/20/2023 COLORECTAL CANCER SCREENING 09/21/2025 Postponed from 12/27/2011 (Patient Refused) MAMMOGRAM 09/21/2025 Postponed from 2006 (Patient Refused) TDAP/TD VACCINES (2 - Td or Tdap) 10/30/2025 10/31/2015 HEPATITIS C SCREENING Completed 05/20/2023 Procedures Procedure Name Priority Date/Time Associated Diagnosis Comments CBC AND DIFFERENTIAL Routine 10/20/2024 2:47 PM EDT CK Routine 10/20/2024 2:47 PM EDT Systemic sclerosis Primary osteoarthritis involving multiple joints Left leg pain SEDIMENTATION RATE Routine 10/20/2024 2: 47 PM EDT Systemic sclerosis Primary osteoarthritis involving multiple joints Left leg pain C-REACTIVE PROTEIN Routine 10/20/2024 2: 47 PM EDT Systemic sclerosis Primary osteoarthritis involving multiple joints Left leg pain COMPREHENSIVE METABOLIC PANEL Routine 10/20/2024 2:47 PM EDT Systemic sclerosis Primary osteoarthritis involving multiple joints Left leg pain LIPID PANEL W/ CHOL/HDL RATIO Routine 01/26/2024 3:37 PM EST Mixed hyperlipidemia HEPATITIS PANEL, ACUTE Routine 05/20/2023 10:11 AM EDT Demyelinating changes in brain Memory loss Vision changes from Last 3 Months or Most Recently Relevant to Health Maintenance Results * Sedimentation Rate (10/20/2024 2:47 PM EDT) Sed Rate 11 0 - 40 mm/hr [facility] Blood 10/20/2024 2:47 PM EDT 10/20/2024 Narrative [facility] ([facility]) - 10/21/2024 8:08 AM EDT Performed at: 01 - [address] [id number] Compressed Gases Tester: Scar Lam PhD, Phone: [phone] Patient Fasting: N us Otoniel Krishnamurthy DO LAB BLOOD ORDERABLES F inal Result [facility] ([facility]) [address] [place] [address], [place] [phone] [facility] [address] [place] [address], * CBC & Differential (10/20/2024 2:47 PM EDT) [facility] WBC 6.6 3.4 - 10.8 x10E3/uL [facility] RBC 4.55 3.77 - 5.28 x10E6/uL [facility] Hemoglobin 13.7 11.1 - 15.9 g/dL [facility] Hematocrit 40.5 34.0 - 46.6 % [facility] MCV 89 79 - 97 fL [facility] MCH 30.1 26.6 - 33.0 pg [facility] MCHC 33.8 31.5 - 35.7 g/dL [facility] RDW 13.1 11.7 - 15.4 % [facility] Platelets 301 150 - 450 x10E3/uL [facility] Neutrophil Rel % 63 Not Estab. % [facility] Lymphocyte Rel % 25 Not Estab. % [facility] Monocyte Rel % 8 Not Estab. % [facility] Eosinophil Rel % 3 Not Estab. % [facility] Basophil Rel % 1 Not Estab. % [facility] Neutrophils Absolute 4.2 1.4 - 7.0 x10E3/uL [facility] Lymphocytes Absolute 1.7 0.7 - 3.1 x10E3/uL [facility] Monocytes Absolute 0.5 0.1 - 0.9 x10E3/uL [facility] Eosinophils Absolute 0.2 0.0 - 0.4 x10E3/uL [facility] Basophils Absolute 0.1 0.0 - 0.2 x10E3/uL [facility] Immature Granulocyte Rel % 0 Not Estab. % [facility] Immature Grans Absolute 0.0 0.0 - 0.1 x10E3/uL [facility] 10/20/2024 2:47 PM EDT 10/20/2024 Narrative [facility] ([facility]) - 10/21/2024 8:08 AM EDT Performed at: - [address] [id number] Compressed Gases Tester: Scar Lam PhD, Phone: [phone] Patient Fasting: N [employer] LAB BLOOD ORDERABLES F inal Result Performing Organization Address City/[facility]/ZIP Co de Phone Number [facility] [address] [place] [address], [place] [phone] [facility] [address] [place] [address], [place] [phone] * (ABNORMAL) C-reactive Protein (10/20/2024 2:47 PM EDT) Pathologist [facility] C-Reactive Protein 18(H) 0 - 10 mg/L [facility] Blood 10/20/2024 2:47 PM EDT 10/20/2024 Narrative [facility] ([facility]) - 10/21/2024 8:08 AM EDT Performed at: - [address] [id number] Compressed Gases Tester: Scar Lam PhD, Phone: [phone] Patient Fasting: N [employer] LAB BLOOD ORDERABLES F inal Result Performing Organization Address [facility] Co de Phone Number [facility] [address] [place] [address], [place] [phone] [facility] [address] [place] [address], [place] [phone] * CK (10/20/2024 2:47 PM EDT) [facility] Creatine Kinase 50 32 - 182 U/L [facility] Blood 10/20/2024 2:47 PM EDT 10/20/2024 Narrative [facility] ([facility]) - 10/21/2024 8:08 AM EDT Performed at: [facility] [address] [id number] Compressed Gases Tester: Scar Lam PhD, Phone: [phone] Patient Fasting: N [employer] LAB BLOOD ORDERABLES F inal Result [facility] ([facility]) [address] [place] [address], [facility] [address] [place] [address], * (ABNORMAL) Comprehensive Metabolic Panel (10/20/2024 2:47 PM EDT) [facility] Signature Glucose 117(H) 70 - 99 mg/dL [facility] BUN 14 6 - 24 mg/dL [facility] Creatinine 0.72 0.57 - 1.00 mg/dL [facility] EGFR Result 97 >59 mL/min/1.7 3 [facility] BUN/Creatinine Ratio 19 9 - 23 [facility] Sodium 142 134 - 144 mmol/L [facility] Potassium 4.9 3.5 - 5.2 mmol/L [facility] Chloride 102 96 - 106 mmol/L [facility] Total CO2 24 20 - 29 mmol/L [facility] Calcium 9.8 8.7 - 10.2 mg/dL [facility] Total Protein 7.2 6.0 - 8.5 g/dL [facility] Albumin 4.4 3.8 - 4.9 g/dL [facility] Globulin 2.8 1.5 - 4.5 g/dL [facility] Total Bilirubin 0.4 0.0 - 1.2 mg/dL [facility] Alkaline Phosphatase 117 44 - 121 IU/L [facility] AST (SGOT) 25 0 - 40 IU/L [facility] ALT (SGPT) 18 0 - 32 IU/L [facility] Blood 10/20/2024 2:47 PM EDT 10/20/2024 Narrative [facility] ([facility]) - 10/21/2024 8:08 AM EDT Performed at: [facility] - [facility] [address] [facility], [place], [place] [id number] Compressed Gases Tester: Scar Lam PhD, Phone: [phone] Patient Fasting: N Otoniel Krishnamurthy DO LAB BLOOD ORDERABLES F inal Result [facility] ([facility]) [address] [place] [address], [facility] [address] [place] [address], * (ABNORMAL) Lipid Panel With / Chol / HDL Ratio (01/26/2024 3:37 PM EST) Total Cholesterol 230(H) 100 - 199 mg/dL [facility] Triglycerides 116 0 - 149 mg/dL [facility] HDL Cholesterol 68 >39 mg/dL [facility] VLDL Cholesterol Slick 20 5 - 40 mg/dL [facility] LDL Chol Calc (NIH) 142(H) 0 - 99 mg/dL [facility] Chol/HDL Ratio 3.4 0.0 - 4.4 ratio [facility] Comment: T. Chol/HDL Ratio Men Women 1/2 Avg.Risk 3.4 3.3 Avg.Risk 5.0 4.4 2X Avg.Risk 9.6 7.1 3X Avg.Risk 23.4 11.0 Blood 01/26/2024 3:37 PM EST 01/26/2024 Narrative [facility] - 01/27/2024 10:36 AM EST Performed at: - [address] [id number] Compressed Gases Tester: Scar Lam PhD, Phone: [phone] Patient Fasting: N Edson Jones MD LAB BLOOD ORDERABLES Final Resu lt [facility] (AMBULATORY) [address] [place] [address], [facility] [address] [place] [address], * Hepatitis Panel, Acute (05/20/2023 10:11 AM EDT) Pathologist [facility] Hepatitis B Surface Ag Non-Reacti ve Non-Reacti ve 05/20/2023 7:32 PM EDT [facility] Hep A IgM Non-Reacti ve Non-Reacti ve 05/20/2023 7:32 PM EDT [facility] Hep B C IgM Non-Reacti ve Non-Reacti ve 05/20/2023 7:32 PM EDT [facility] Hepatitis C Ab Non-Reacti ve Non-Reacti ve 05/20/2023 7:32 PM EDT [facility] Blood Venipuncture / Unknown 05/20/2023 10:11 AM EDT 05/20/2023 10:12 AM EDT Narrative [facility] - 05/20/2023 7:32 PM EDT Results may be falsely decreased if patient taking Biotin. Cinthia Vo APRN LAB BLOOD ORDERABLES [facility] Result [facility]
[address] [place] [address], from Last 3 Months or Most Recently Relevant to Health Maintenance Insurance [employer] Care Teams Tennis Ball Cover Cementer Relationship Specialty Start Date End Date Edson Jones MD [facility] [place] [address] PCP - General Family Medicine 10/07/22
--- OUTSIDE RECORDS SUMMARY | 2024-12-26 14:56 | XMS_ITS | Encounter Summary ---
[facility] Address [address] [id number] Care Team Providers Care Art Librarian Name Role Phone Edson Jones MD Primary Care Provider [phone] Encounter Details Date Type Department Care Team (Late Contact Info) Description 06/14/2024 Results Follow-Up [facility] [address] [place] [address] Edson Jones MD [address] [place] [address] Social History Tobacco Use Types [...] Description 03/27/2025 3:45 PM EST Office Visit [facility] RHEUM[facility]OLOGY [address] [address] Otoniel Krishnamurthy DO [address] [address] documented as of this encounter Visit Diagnoses Not on filedocumented in this encounter Care Teams Art Librarian Relationship Specialty Start Date End Date Edson Jones MD [address] [place] [address] PCP - General Family Medicine 10/07/22 documented as of this encounter
--- OUTSIDE RECORDS SUMMARY | 2024-12-26 14:56 | XMS_ITS | Referral Summary ---
Author Organization [employer] ([place], [place], [place], [place]) Address [address] [place] [address] Care Team Providers Care Program Project Analyst Name Role Phone Unavailable Primary Care Provider [...] Active Active Problems No known active problems Social History Tobacco Use Types Packs/Day Years [...] Date Juan rded Speak language other than Cambodian at home Not on file 06/19/2023 Want [...] 06/23/2023 11:00 AM EDT Plan of Treatment Not on file Insurance BLUE CROSS/BLUE SHIELD
--- OUTSIDE RECORDS SUMMARY | 2024-12-26 14:56 | XMS_ITS | Encounter Summary ---
[facility] [address] [place] [address] Care Team Providers Care Software Engineering Associate Manager Name Role Phone Edson Jones MD Primary Care Provider [phone] Reason for Visit * Reason Onset Date Comments Med Refill 11/24/2024 Encounter Details Date Type Department Care Team (Late Contact Info) Description 11/24/2024 Refill [facility] MEDICINE [address] [place] [address] Edson Jones MD [address] [place], [place] [id number] Cellulitis of right lower extremity Social History Tobacco Use Types Packs/Day Years [...] Encounters Date Type Department Care Team (Late Contact Info) Description 03/27/2025 3:45 PM EST Office Visit [facility] RHE[facility]Y [address] [address] Otoniel Krishnamurthy DO [address] [address] documented as of this encounter Visit Diagnoses Diagnosis Cellulitis of right lower extremity documented in this encounter Care Teams Software Engineering Associate Manager Relationship Specialty Start Date End Date Edson Jones MD [address] [place] [address] PCP - General Family Medicine 10/07/22 documented as of this encounter
[2024-12-26 15:06] LABS: Total Cells Counted 100
[2024-12-26 15:07] LABS: RBC Morphology Normal
[2024-12-26 15:26] LABS: White Blood Count 22.3 K/mm3 (4.8-10.8)
--- NOTE | 2024-12-26 15:49 | PC.NURSE ---
attempted to straight stick patient,unsuccessful at this time.
[2024-12-26 16:32] LABS: Microscopic, Urine URINE MICROSCOPIC (MICROSCOPIC)
[2024-12-26 16:36] LABS: Color,Urine YELLOW (Yellow); Glucose,Urine (UA) Negative (Negative); Ketones,Urine TRACE (Negative); Leukocyte Esterase,Urine Negative (Negative); PH,Urine 5.0 (5.0-8.5); Protein,Urine Negative (Negative); Specific Gravity, Urine >= 1.030 (1.005-1.030); Urobilinogen,Urine 1.0 EU/dl (0.2)
[2024-12-26 16:37] LABS: Bilirubin,Urine 2+ (Negative)
[2024-12-26] MEDS: IOPAMIDOL-370 (76%);100ML BOTTLE 75 ML IV (16:40)
[2024-12-26] MEDS: SODIUM CHLORIDE 0.9% 10ML SYR (RAD ONLY) 10 ML IV (16:40)
[2024-12-26 17:34] LABS: Bacteria,Urine Trace /lpf; Calcium Oxalate Crystals,Urine 1+ /lpf; WBC,Urine Occasional #/hpf (0-3)
[2024-12-26] MEDS: DICYCLOMINE 20 MG/2ML VIAL IM (17:34)
--- NOTE | 2024-12-26 17:45 | PC.NURSE ---
MARKET RESEARCH SENIOR PROJECT MANAGER NOTIFIED OF ADMISSION
--- NOTE | 2024-12-26 17:58 | PC.NURSE ---
report given to BRAD Roe for room 216
--- NOTE | 2024-12-26 18:03 | EXP.HP ---
History of Present Illness *Admission Date: 12/26/24 *Reason for visit:: Abdominal pain *History of present illness: This is a 59-year-old female who presents to [facility] emergency department with concerns of abdominal pain to the lower quadrants with associated diarrhea that started this morning. She reports some nausea but denies vomiting. She identifies no sick contacts. She reports no associated fever, chills, rashes or recent travel. She reports no previous colonoscopy. Her past medical history is significant for opioid use disorder with reported Suboxone therapy. She endorses chronic constipation. In the ED she was tachycardic with leukocytosis and proctocolitis identified on imaging. Hospital medicine was asked to admit the patient. [facility] Disclaimer: The information contained in this section may have been updated after the patient was seen, as this information can be updated by other users. Medical History (Updated 12/26/24 @ 18:07 by Earl Ann MD) Opioid use disorder Social History Smoking Status: Never smoker second hand exposure: No alcohol intake: never current occupational status: other Travel in the last 8 weeks?: None housing: house Have you lived/traveled outside US in past 30 days?: No Contact w/someone who lives/traveled outside US past 30 days?: No Exposure to someone with infectious disease in past 14 days?: No Do you have a fever (greater than 100.4 F or 38 C)?: No Have you tested positive for COVID-19?: No Exposed to someone with COVID-19 in past 14 days?: No Do you have a sore throat?: No Do you have a cough?: No Do you have any weakness?: No Do you have any diarrhea?: No Are you experiencing any unusual bleeding?: No Do you have any muscle aches/pain?: No Do you have any abdominal pain?: No Are you experiencing loss of taste or smell?: No Other Medical History Have you received the Flu Vaccine for this season: No Have you received the Pneumonia Vaccine: No Review of Systems Review of Systems Review of systems:: pertinent systems reviewed and negative unless documented below Meds Home Medications and Allergies Home Medications ?Medication ?Instructions ?Recorded ?Confirmed ?Type bupropion HCl 150 mg tablet,12 hr 150 mg PO BID Depression 04/21/18 12/26/20 History sustained-release clonidine HCl 0.2 mg tablet 0.2 mg PO DAILY ANXIETY/HTN 04/21/18 12/26/20 History buprenorphine 8 mg-naloxone 2 mg 1.5 each SL DAILY . 12/26/20 12/26/20 History sublingual tablet cephalexin 500 mg capsule 500 mg PO TID #30 caps 12/26/20 Rx ketorolac 10 mg tablet 10 mg PO Q6HP PRN Moderate To 12/26/20 Rx Severe Pain #8 tabs prednisone 20 mg tablet 20 mg PO BID #10 tabs 12/26/20 Rx New Prescriptions to Start Prescriptions: Allergies Allergy/AdvReac Type Severity Reaction Status Date / Time No Known Allergies Allergy Verified 04/21/18 19:03 Exam Data for Last 24 hours Vital signs and Labs for Last 24 Hours: Temp Pulse Resp BP Pulse Ox 98.9 F 88 18 119/66 94 L 12/26/24 18:00 12/26/24 18:00 12/26/24 18:00 12/26/24 18:00 12/26/24 16:15 Laboratory Results - last 24 hr 12/26/24 14:25: WBC 22.3 H*, RBC 5.00, Hgb 15.0, Hct 43.5, MCV 87.0, MCH 30.0, MCHC 34.5, RDW 11.9, Plt Count 437 H, MPV 9.3, Neut % (Auto) 91.6 H, Lymph % (Auto) 3.0 L, [place] % (Auto) 4.7, Eos % (Auto) 0.0 L, Baso % (Auto) 0.2, Neut # (Auto) 20.5 H, Lymph # (Auto) 0.7, [place] # (Auto) 1.1 H, Eos # (Auto) 0.0, Baso # (Auto) 0.1, Total Counted 100, Neutrophils % (Manual) 88 H, Band Neutrophils % 3.0, Lymphocytes % (Manual) 5 L, Monocytes % (Manual) 4, Platelet Estimate Normal, RBC Morphology Normal, Sodium 135 L, Potassium 3.9, Chloride 100, Carbon Dioxide 28, Anion Gap 10.9, BUN 22 H, Creatinine 0.80, Estimated Creat Clear 71, Estimated GFR 74, Est GFR ( Amer) 89, Glucose 170 H, Calcium 9.0, Magnesium 2.0, Total Bilirubin 0.7, AST 37 H, ALT 31, Alkaline Phosphatase 123, Total Protein 7.8, Albumin 3.4 L, Globulin 4.4 H, Albumin/Globulin Ratio 0.8 L, Lipase 56 12/26/24 15:35: Lactate 2.0 12/26/24 16:25: Urine Color Yellow, Urine Appearance Clear, Urine pH 5.0, Ur Specific [place] >= 1.030, Urine Protein Negative, Urine Glucose (UA) Negative, Urine Ketones Trace, Urine Blood Negative, Urine Nitrate Negative, Urine Bilirubin 2+ A, Urine Urobilinogen 1.0, Ur Leukocyte Esterase Negative, Urine RBC None, Urine WBC Occasional, Ur Squamous Epith Cells None, Calcium Oxalate Crystal 1+, Urine Bacteria Trace I & O for Last 24 hours: Intake & Output 12/23/24 12/24/24 12/25/24 12/26/24 23:59 23:59 23:59 23:59 Intake Total 1000 / 1000 Balance 1000 / 1000 Weight 58.967 kg Constitutional Constitutional: no acute distress, average body habitus, chronically ill appearing and cooperative *Routine HEENT Exam Head: Present normocephalic Eye: Present EOMI ENT: Present mucous membranes moist *Routine Respiratory Exam Respiratory: Present rhonchi, normal respiratory effort and symmetric chest movement; Absent respiratory distress *Routine Cardiovascular Exam Cardiovascular: Present RRR; Absent murmur *Routine Abdominal Exam Abdominal: Present soft, normoactive bowel sounds and tenderness; Absent distended or rebound *Routine Rectal Exam Rectal:: deferred *Routine Genitalia Exam Genitalia:: deferred *Routine Extremities Exam Extremities: Absent edema *Routine Skin Exam Skin: Absent rash *Routine Neurological Exam Neurological: Present alert, oriented X3, moving all extremities, vision grossly intact, hearing grossly intact and normal speech; Absent sensory deficit or motor deficit Routine Psychiatric Exam Psychiatric: Present normal affect, normal thought process, cooperative and good insight Assessment and Plan *Assessment and plan (1) Sepsis: Status: Acute Category: Medical Code(s): A41.9 - Sepsis, unspecified organism (2) Proctocolitis: Status: Acute Category: Medical Code(s): K52.9 - Noninfective gastroenteritis and colitis, unspecified (3) Opioid use disorder: Status: Acute Category: Medical Code(s): F11.90 - Opioid use, unspecified, uncomplicated Plan This is a 59-year-old female that presents to the emergency department concerns of abdominal pain and diarrhea and imaging has identified proctocolitis. She was tachycardic with leukocytosis and normal lactic acid after fluid resuscitation. Problems addressed as follows: Sepsis, present on admission Tachycardia, leukocytosis, source identified IV fluid resuscitation with normal lactic acid Blood cultures pending Trending labs and inflammatory markers IV antibiotic therapy Proctocolitis Chronic constipation Colonoscopy na?ve CT A/P with contrast: Severe proctocolitis with associated inguinal adenopathy Trending labs and inflammatory markers IV fluid resuscitation IV Merrem 1 g every 8 hours Bowel regimen Accurate I's and O's Pain control Parentally administered controlled substance for comfort care Liver lesions Identified on CT A/P with contrast Liver ultrasound pending N.p.o. past midnight Admission LFTs normal Hepatitis panel pending Opioid use disorder Chronically prescribed Suboxone Pharmacy assisting with medication reconciliation for admission Pain control discussed The length of stay for this patient will be 2 midnights or greater due to above diagnoses.
--- NOTE | 2024-12-26 18:41 | PC.NURSE ---
arrived by w/c from ED
[2024-12-26] MEDS: 0.9 % SODIUM CHLORIDE 1000ML 1,000 ML 125 ML IV (18:47)
[2024-12-26] MEDS: MEROPENEM 1 GM in 0.9 % SODIUM CHLORIDE 100 ML IV (18:47)
[2024-12-26] MEDS: SENNOSIDES 8.6MG/DOCUSATE 50MG TABLET 1 TAB PO (18:51)
[2024-12-26] MEDS: KETOROLAC 30MG/ML VIAL 30 MG IV (19:01)
--- NOTE | 2024-12-26 19:31 | PC.NURSE ---
Per patient relating to her buprenorphine-naloxone prescription, patient takes 1 tablet one day, then 1/2 tablet the next, alternating. Patient took 1 full tablet 12/26/24 at home.
[2024-12-26] MEDS: PANTOPRAZOLE 40MG TABLET 40 MG PO (20:05)
[2024-12-27] MEDS: MEROPENEM 1 GM in 0.9 % SODIUM CHLORIDE 100 ML IV ×2 (01:58→09:19)
[2024-12-27 04:00] VITALS: BP 100/57; PULSE 67; RESP 16; TEMP 37.1; O2SAT 96; BMI 24.2
[2024-12-27] MEDS: 0.9 % SODIUM CHLORIDE 1000ML 1,000 ML 125 ML IV (04:37)
[2024-12-27] MEDS: KETOROLAC 30MG/ML VIAL 30 MG IV ×2 (04:50→10:55)
[2024-12-27] MEDS: ONDANSETRON 4MG/2ML VIAL 4 MG IV (04:51)
[2024-12-27 06:10] LABS: Hematocrit 34.2 % (37.0-47.0); Immature Granulocytes % 0.4 %; Mean Corpuscular HGB Conc 33.6 g/dL (31.8-35.4); Mean Corpuscular Hemoglobin 29.6 pg (27.0-31.2); Mean Corpuscular Volume 88.1 fl (81-99); Nucleated Red Blood Cells % 0 %; Platelet Count 271 K/mm3 (142-424); Red Blood Count 3.88 M/mm3 (4.20-5.40); Red Cell Distribution Width-SD 39.3 fL; White Blood Count 11.5 K/mm3 (4.8-10.8)
[2024-12-27 06:21] LABS: Anion Gap 4.6 mEq/L (5-15); Blood Urea Nitrogen 20 mg/dl (7-17); Calcium 7.8 mg/dl (8.4-10.2); Carbon Dioxide 26 mmol/L (22.0-30.0); Chloride 109 mmol/L (98-107); Creatinine Clearance Estimated 59 mL/min (50-200); Creatinine,Serum 0.90 mg/dl (0.52-1.04); Estimated Glomerular Filt Rate 64 ml/min (>60); GFR (African American) 78 ML/MIN (>60); Glucose 108 mg/dl (74-100); Potassium 3.6 mmoL/L (3.5-5.1); Sodium 136 mmol/L (136-145)
[2024-12-27 06:28] LABS: C-Reactive Protein 69.9 mg/L (0-4)
[2024-12-27 06:33] LABS: Hemoglobin 11.5 g/dL (12.2-16.2)
--- NOTE | 2024-12-27 07:00 | US_ITS ---
FINAL REPORT CLINICAL HISTORY: ABnormal CT A/P with liver findings FINDINGS: RIGHT UPPER QUADRANT ULTRASOUND Technique: Ultrasound images of the right upper quadrant were obtained. There is fatty infiltration of the liver. The gallbladder is well visualized and the wall appears normal. There are no gallstones. Common duct is normal. The right kidney is unremarkable. IMPRESSION: Fatty liver. Reviewed, Interpreted and Dictated by Lopez Owen MD Transcribed by Lorraine Cadena Authenticated and . [facility]
[2024-12-27 07:53] VITALS: BP 118/59; PULSE 68; RESP 16; TEMP 36.6; O2SAT 96
[2024-12-27 09:40] LABS: Hemoglobin A1C 5.1 % (4.0-6.0)
--- NOTE | 2024-12-27 10:02 | HMH.PHAINT1 ---
Pharmacy Intervention Comments: MEDICATION RECONCILIATION COMPLETED ON PATIENT USING EXTERNAL FILL HISTORY FROM PHARMACY AND RA REPORT. -GRIS BAILEY, KASIAD
[2024-12-27 10:46] LABS: Adenovirus F 40/41, stool Not Detected (NotDetected); Clostridium Difficile A/B, PCR Not Detected (NotDetected); Cyclospora Cayetanesis Not Detected (NotDetected); Plesimonas Shigalloides, PCR Not Detected (NotDetected); Salmonella, PCR Not Detected (NotDetected); Shiga-like toxin E coli Not Detected (NotDetected); Shigella Enterovasive E coli Not Detected (NotDetected); Vibrio, PCR Not Detected (NotDetected); Yersinia Entercolitica, PCR Not Detected (NotDetected)
[2024-12-27 12:00] VITALS: BP 132/74; PULSE 88; RESP 17; O2SAT 96
--- NOTE | 2024-12-27 13:57 | P.DS_ITS ---
General Admission date:: 12/26/24 HPI HPI HPI: This is a 59-year-old female who presents to [facility] emergency department with concerns of abdominal pain to the lower quadrants with associated diarrhea that started this morning. She reports some nausea but denies vomiting. She identifies no sick contacts. She reports no associated fever, chills, rashes or recent travel. She reports no previous colonoscopy. Her past medical history is significant for opioid use disorder with reported Suboxone therapy. She endorses chronic constipation. In the ED she was tachycardic with leukocytosis and proctocolitis identified on imaging. Hospital medicine was asked to admit the patient. Hospital Course Hospital Course Hospital Course: Dayana Arndt is a 59-year-old female who presented with nausea, abdominal pain, diarrhea and admitted for sepsis secondary to severe proctocolitis. #Sepsis #Severe proctocolitis ? Patient presented with nausea, abdominal pain, diarrhea and was found to have severe proctocolitis on CT abdomen/pelvis on admission. ? Overall, patient improved with IV meropenem. Feels much better, tolerating diet without abdominal pain, nausea/vomiting. Initial WBC 22.3, improved to 11.5. ? Patient states she is never had a colonoscopy, will refer to GI for further evaluation and management. ? Diarrhea panel negative. Personal review of CT does not reveal stool burden. ? Discharged with levofloxacin 750 mg daily, Augmentin 500 mg 3 times daily (allergic to metronidazole) for 5 more days. Zofran as needed. ? Advised follow-up with PCP within 1 week. #Opioid use disorder, in remission ? Continue home Suboxone. #Anxiety/depression ? Continue home bupropion 150 mg, clonidine 0.2 mg. Exam Data for Last 24 hours Vital signs and Labs for Last 24 Hours: Temp Pulse Resp BP Pulse Ox O2 Del Method 97.8 F 68 16 118/59 L 96 Room Air 12/27/24 07:53 12/27/24 07:53 12/27/24 07:53 12/27/24 07:53 12/27/24 07:53 12/27/24 07:53 Laboratory Results - last 24 hr 12/26/24 14:25: WBC 22.3 H*, RBC 5.00, Hgb 15.0, Hct 43.5, MCV 87.0, MCH 30.0, MCHC 34.5, RDW 11.9, Plt Count 437 H, MPV 9.3, Neut % (Auto) 91.6 H, Lymph % (Auto) 3.0 L, [place] % (Auto) 4.7, Eos % (Auto) 0.0 L, Baso % (Auto) 0.2, Neut # (Auto) 20.5 H, Lymph # (Auto) 0.7, [place] # (Auto) 1.1 H, Eos # (Auto) 0.0, Baso # (Auto) 0.1, Total Counted 100, Neutrophils % (Manual) 88 H, Band Neutrophils % 3.0, Lymphocytes % (Manual) 5 L, Monocytes % (Manual) 4, Platelet Estimate No rmal, RBC Morphology Normal, Sodium 135 L, Potassium 3.9, Chloride 100, Carbon Dioxide 28, Anion Gap 10.9, BUN 22 H, Creatinine 0.80, Estimated Creat Clear 71, Estimated GFR 74, Est GFR ( Amer) 89, Glucose 170 H, Calcium 9.0, Magnesium 2.0, Total Bilirubin 0.7, AST 37 H, ALT 31, Alkaline Phosphatase 123, Total Protein 7.8, Albumin 3.4 L, Globulin 4.4 H, Albumin/Globulin Ratio 0.8 L, Lipase 56 12/26/24 15:35: Lactate 2.0 12/26/24 16:25: Urine Color Yellow, Urine Appearance Clear, Urine pH 5.0, Ur Specific [place] >= 1.030, Urine Protein Negative, Urine Glucose (UA) Negative, Urine Ketones Trace, Urine Blood Negative, Urine Nitrate Negative, Urine Bilirubin 2+ A, Urine Urobilinogen 1.0, Ur Leukocyte Esterase Negative, Urine RBC None, Urine WBC Occasional, Ur Squamous Epith Cells None, Calcium Oxalate Crystal 1+, Urine Bacteria Trace 12/27/24 05:40: WBC 11.5 H D, RBC 3.88 L, Hgb 11.5 L D, Hct 34.2 L, MCV 88.1, MCH 29.6, MCHC 33.6, RDW 12.4, Plt Count 271 D, MPV 9.4, Neut % (Auto) 79.1, Lymph % (Auto) 12.1, [place] % (Auto) 7.1, Eos % (Auto) 1.0, Baso % (Auto) 0.3, Neut # (Auto) 9.1 H, Lymph # (Auto) 1.4, [place] # (Auto) 0.8, Eos # (Auto) 0.1, Baso # (Auto) 0.0, ESR 29, Sodium 136, Potassium 3.6, Chloride 109 H, Carbon Dioxide 26, Anion Gap 4.6 L, BUN 20 H, Creatinine 0.90, Estimated Creat Clear 59, Estimated GFR 64, Est GFR ( Amer) 78, Glucose 108 H D, Hemoglobin A1c 5.1, Calcium 7.8 L, C-Reactive Protein 69.9 H 12/27/24 10:36: Stl C. cayetanensis PCR Not detected, Stool Rotavirus (PCR) Not detected, Stl Adenov F 40/41 PCR Not detected, Stool Astrovirus (PCR) Not detected, Stool Campylobacter PCR Not detected, Stl C.difficile Tox PCR Not detected, Stool Cryptosporidium PCR Not detected, Stl E.coli Shiga Tox PCR Not detected, Stool E coli O157 PCR Not detected, Stl Enterotoxigenic E PCR Not detected, Stool EPEC (PCR) Not detected, Stool EAEC (PCR) Not detected, Stl E. histolytica PCR Not detected, Stool Giardia Lamblia PCR Not detected, Stool Salmonella PCR Not detected, Stool Sapovirus (PCR) Not detected, Stl P. shigelloides PCR Not detected, Stl Shigella/EIEC PCR Not detected, St Y.enterocolitica PCR Not detected, Stool Vibrio (PCR) Not detected, Stl Vibrio cholerae PCR Not detected, Stl Norovirus GI/GII PCR Not detected I & O for Last 24 hours: Intake & Output 12/24/24 12/25/24 12/26/24 12/27/24 23:59 23:59 23:59 23:59 Intake Total 1100 / 1100 1200 / 1200 Output Total 0 / 0 Balance 1100 / 1100 1200 / 1200 Weight 55.055 kg 54.567 kg Constitutional Constitutional: no acute distress *Routine HEENT Exam Head: Present normocephalic Eye: Present EOMI and PERRL ENT: Present mucous membranes moist *Routine Neck Exam Neck: Present supple; Absent lymphadenopathy *Routine Respiratory Exam Respiratory: Present CTA bilaterally *Routine Cardiovascular Exam Cardiovascular: Present RRR *Routine Abdominal Exam Abdominal: Present soft and normoactive bowel sounds; Absent tenderness *Routine Extremities Exam Extremities: Absent cyanosis, clubbing or edema *Routine Skin Exam Skin: Present warm; Absent rash *Routine Neurological Exam Neurological: Present alert and oriented X3 Results Data Completed and Pending Labs on day of discharge: Labs from last 24 hours 12/27/24 12/27/24 12/26/24 10:36 05:40 16:25 WBC 11.5 H D RBC 3.88 L Hgb 11.5 L D Hct 34.2 L MCV 88.1 MCH 29.6 MCHC 33.6 RDW 12.4 Plt Count 271 D MPV 9.4 Neut % (Auto) 79.1 Lymph % (Auto) 12.1 [place] % (Auto) 7.1 Eos % (Auto) 1.0 Baso % (Auto) 0.3 Neut # (Auto) 9.1 H Lymph # (Auto) 1.4 [place] # (Auto) 0.8 Eos # (Auto) 0.1 Baso # (Auto) 0.0 Total Counted Neutrophils % (Manual) Band Neutrophils % Lymphocytes % (Manual) Monocytes % (Manual) Platelet Estimate RBC Morphology ESR 29 Sodium 136 Potassium 3.6 Chloride 109 H Carbon Dioxide 26 Anion Gap 4.6 L BUN 20 H Creatinine 0.90 Estimated Creat Clear 59 Estimated GFR 64 Est GFR ( Amer) 78 Glucose 108 H D Hemoglobin A1c 5.1 Lactate Calcium 7.8 L Magnesium Total Bilirubin AST ALT Alkaline Phosphatase C-Reactive Protein 69.9 H Total Protein Albumin Globulin Albumin/Globulin Ratio Lipase Urine Color Yellow Urine Appearance Clear Urine pH 5.0 Ur Specific [place] >= 1.030 Urine Protein Negative Urine Glucose (UA) Negative Urine Ketones Trace Urine Blood Negative Urine Nitrate Negative Urine Bilirubin 2+ A Urine Urobilinogen 1.0 Ur Leukocyte Esterase Negative Urine RBC None Urine WBC Occasional Ur Squamous Epith Cells None Calcium Oxalate Crystal 1+ Urine Bacteria Trace Stl C. cayetanensis PCR Not detected Stool Rotavirus (PCR) Not detected Stl Adenov F 40/41 PCR Not detected Stool Astrovirus (PCR) Not detected Stool Campylobacter PCR Not detected Stl C.difficile Tox PCR Not detected Stool Cryptosporidium PCR Not detected Stl E.coli Shiga Tox PCR Not detected Stool E coli O157 PCR Not detected Stl Enterotoxigenic E PCR Not detected Stool EPEC (PCR) Not detected Stool EAEC (PCR) Not detected Stl E. histolytica PCR Not detected Stool Giardia Lamblia PCR Not detected Stool Salmonella PCR Not detected Stool Sapovirus (PCR) Not detected Stl P. shigelloides PCR Not detected Stl Shigella/EIEC PCR Not detected St Y.enterocolitica PCR Not detected Stool Vibrio (PCR) Not detected Stl Vibrio cholerae PCR Not detected Stl Norovirus GI/GII PCR Not detected 12/26/24 12/26/24 15:35 14:25 WBC 22.3 H* RBC 5.00 Hgb 15.0 Hct 43.5 MCV 87.0 MCH 30.0 MCHC 34.5 RDW 11.9 Plt Count 437 H MPV 9.3 Neut % (Auto) 91.6 H Lymph % (Auto) 3.0 L [place] % (Auto) 4.7 Eos % (Auto) 0.0 L Baso % (Auto) 0.2 Neut # (Auto) 20.5 H Lymph # (Auto) 0.7 [place] # (Auto) 1.1 H Eos # (Auto) 0.0 Baso # (Auto) 0.1 Total Counted 100 Neutrophils % (Manual) 88 H Band Neutrophils % 3.0 Lymphocytes % (Manual) 5 L Monocytes % (Manual) 4 Platelet Estimate Normal RBC Morphology Normal ESR Sodium 135 L Potassium 3.9 Chloride 100 Carbon Dioxide 28 Anion Gap 10.9 BUN 22 H Creatinine 0.80 Estimated Creat Clear 71 Estimated GFR 74 Est GFR ( Amer) 89 Glucose 170 H Hemoglobin A1c Lactate 2.0 Calcium 9.0 Magnesium 2.0 Total Bilirubin 0.7 AST 37 H ALT 31 Alkaline Phosphatase 123 C-Reactive Protein Total Protein 7.8 Albumin 3.4 L Globulin 4.4 H Albumin/Globulin Ratio 0.8 L Lipase 56 Urine Color Urine Appearance Urine pH Ur Specific [place] Urine Protein Urine Glucose (UA) Urine Ketones Urine Blood Urine Nitrate Urine Bilirubin Urine Urobilinogen Ur Leukocyte Esterase Urine RBC Urine WBC Ur Squamous Epith Cells Calcium Oxalate Crystal Urine Bacteria Stl C. cayetanensis PCR Stool Rotavirus (PCR) Stl Adenov F 40/41 PCR Stool Astrovirus (PCR) Stool Campylobacter PCR Stl C.difficile Tox PCR Stool Cryptosporidium PCR Stl E.coli Shiga Tox PCR Stool E coli O157 PCR Stl Enterotoxigenic E PCR Stool EPEC (PCR) Stool EAEC (PCR) Stl E. histolytica PCR Stool Giardia Lamblia PCR Stool Salmonella PCR Stool Sapovirus (PCR) Stl P. shigelloides PCR Stl Shigella/EIEC PCR St Y.enterocolitica PCR Stool Vibrio (PCR) Stl Vibrio cholerae PCR Stl Norovirus GI/GII PCR DS: Diagnosis Discharge Diagnosis (1) Sepsis: Status: Acute Code(s): A41.9 - Sepsis, unspecified organism (2) Proctocolitis: Status: Acute Code(s): K52.9 - Noninfective gastroenteritis and colitis, unspecified (3) Opioid use disorder: Status: Acute Code(s): F11.90 - Opioid use, unspecified, uncomplicated Meds Home Medications and Allergies Home Medications ?Medication ?Instructions ?Recorded ?Confirmed ?Type buprenorphine 8 mg-naloxone 2 mg 1 each SL DIRECTED 12/26/20 12/27/24 History sublingual tablet bupropion HCl 150 mg 24 hr tablet, 150 mg PO DAILY 12/26/24 History extended release clonidine HCl 0.2 mg tablet 0.2 mg PO DAILY 12/26/24 1 History amoxicillin 500 mg-potassium 1 tab PO TID 5 days #15 t abs 12/27/24 Rx clavulanate 125 mg tablet (Augmentin) levofloxacin 750 mg tablet 750 mg PO DAILY 5 days #5 t abs 12/27/24 Rx ondansetron 4 mg disintegrating 4 mg PO Q8H PRN nausea and 12/27/24 Rx tablet vomiting #14 tabs New Prescriptions to Start Prescriptions: amoxicillin-pot clavulanate [Augmentin] Guy Mathews levofloxacin Guy Mathews ondansetron Guy Mathews Allergies Allergy/AdvReac Type Severity Reaction Status Date / Time No Known Allergies Allergy Verified 04/21/18 19:03 Discharge Plan Disposition Patient Disposition: Home, Self-Care Condition: Fair Follow up Plan Follow up with: Edson Jones MD [Referring, Medical] - 01/09/25 12:00 pm Raymond Cornejo II, MD [Staff Physician, Gastroenterology] - Enter time for follow up Referral Note: Severe proctocolitis improved on antibiotics, has never had a colonoscopy. Prescriptions/Medication Reconciliation: New levofloxacin 750 mg tablet 750 mg PO DAILY 5 Days Qty: 5 0RF ondansetron 4 mg tablet,disintegrating 4 mg PO Q8H PRN (Reason: nausea and vomiting) Qty: 14 0RF amoxicillin-pot clavulanate [Augmentin] 500-125 mg tablet 1 tab PO TID 5 Days Qty: 15 0RF Continued clonidine HCl 0.2 mg Tablet 0.2 mg PO DAILY bupropion HCl 150 mg tablet extended release 24 hr 150 mg PO DAILY Patient Comments: TAKE 1 TABLET BY MOUTH EVERY DAY buprenorphine-naloxone 1 EACH tablet, sublingual 1 each SL DIRECTED Rx Instructions: Patient takes 1 tablet one day, then 1/2 tablet the next, alternating. Patient took 1 full tablet 12/26/24 at home. Problem Reconciliation Problems Reviewed?: Yes Patient Discharge Instructions Patient Instructions: DI for Sepsis in Adults, DI for Colitis, Stop Light Infection Print Language: [place] Citizen Providers Primary Care Provider: Edson Jones Admit Provider: Earl Ann Attending Provider: Earl Ann
--- NOTE | 2024-12-29 11:00 | SW/DCPLANNER ---
Phoned patient x2. Was unable to leave message due to patient's voicemail not sat up. Neelam Brennan
== END 2024-12-27 14:50 | disposition home or self-care (01) ==
LOC: ER 17:45 → 2ND 17:48
PROVIDERS: Nurse Practitioner Family; Student in an Organized Health Care Education/Training Program; Admitting Provider Family Medicine; Emergency Provider Student in an Organized Health Care Education/Training Program; PCP Emergency Medicine; Visit Provider Family Medicine
DX: K51.30 Ulcerative (chronic) rectosigmoiditis without complications (principal); A41.9 Sepsis, unspecified organism; F11.11 Opioid abuse, in remission; F41.9 Anxiety disorder, unspecified; F32.A Depression, unspecified; K76.0 Fatty (change of) liver, not elsewhere classified; R59.0 Localized enlarged lymph nodes; K44.9 Diaphragmatic hernia without obstruction or gangrene; I10 Essential (primary) hypertension; Z90.710 Acquired absence of both cervix and uterus; Z79.899 Other long term (current) drug therapy
CPT/HCPCS: 36415; 74177; 76705; 80048; 80053; 81001; 83036; 83605; 83690; 83735; 85007; 85025; 85027; 85651; 86140; 87040; 87507; 93005; 96361; 96365; 96366; 96372; 96375; 96376; 99285; G0378; J0500; J0574; J1885; J2185; J2405; J7030; Q9967

== ENCOUNTER 2025-02-19 07:11 | Emergency (ER) | payer BC, SELFPAY ==
--- OUTSIDE RECORDS SUMMARY | 2023-07-01 10:06 | XMS_ITS | Encounter Summary ---
Author Organization [facility] Address [address] [place] [id number] Care Team Providers Care Pull Up Hand Name Role Phone Edson Jones MD Primary Care Provider [phone] Encounter Details Date Type Department Care Team (Late Contact Info) Description 07/01/2023 11:06 AM EDT Hospital Encounter [facility] MEDICINE [address] [place] [address] Social History Tobacco Use Types Packs/Day Years Used Date Smoking Tobacco: Never Smokeless Tobacco: Never Alcohol Use Standard Drinks/Week Comments No 0 (1 standard drink = 0.6 oz pur e alcohol) PHQ-2 Answer Date Recorded Retired PHQ-9: Brief Depression Severity Measure Score 0 06/16/2022 PHQ-2 Answer Date Recorded Patient Health Questionnaire-2 Score 1 09/21/2024 Comments No Sex and Gender Information Value Date Recorded Sex Assigned at Female 06/20/2024 10:43 AM EDT Legal Sex Female 11:04 AM EDT Gender Identity Not on file Sexual Orientation Not on file documented as of this encounter Plan of Treatment Upcoming Encounters Date Type Department Care Team (Late st Contact Info) Description 03/27/2025 3:45 PM EST Office Visit [facility] R[facility] [address] [place] [address] Otoniel Krishnamurthy DO [address] [facility] [address] [place] [address] documented as of this encounter Procedures Procedure Name Priority Date/Time Associated Diagnosis Comments XR CHEST PA AND LATERAL Routine 07/01/2023 11:07 AM EDT Shortness of breath documented in this encounter Results * XR Chest PA & Lateral (07/01/2023 11:07 AM EDT) Anatomical Region Laterality Modality Body, Chest N/A Radiographic Perla ging 07/01/2023 4:32 PM EDT Impressions 07/01/2023 4:33 PM EDT Impression: No acute cardiopulmonary process Electronically Signed: Dolores Bernardo MD 07/01/2023 4:33 PM EDT Workstation ID: [id number] Narrative 07/01/2023 4:33 PM EDT XR CHEST PA AND LATERAL Date of Exam: 07/01/2023 11:06 AM EDT Indication: SOA Comparison: None available. Findings: Cardiomediastinal silhouette is unremarkable. No airspace disease, pneumothorax, nor pleural effusion. No acute osseous abnormality identified. Procedure Note Dolores Bernardo MD - 07/01/2023 XR CHEST PA AND LATERAL Date of Exam: 07/01/2023 11:06 AM EDT Indication: SOA Comparison: None available. Findings: Cardiomediastinal silhouette is unremarkable. No airspace disease,pneumothorax, nor pleural effusion. No acute osseous abnormalityidentified. IMPRESSION: Impression: No acute cardiopulmonary process Electronically Signed: Dolores Bernardo MD 07/01/2023 4:33 PM EDT Workstation ID: [id number] Stephanie Luo APRN IMG DIAGNOSTIC IMAGING ORDER ERASMO Final Result documented in this encounter Visit Diagnoses Not on filedocumented in this encounter Care Teams Pull Up Hand Relationship Specialty Start Date End Date Edson Jones MD [address] [place] [id number] PCP - General Family Medicine 10/07/22 documented as of this encounter
--- OUTSIDE RECORDS SUMMARY | 2024-12-30 15:00 | XMS_ITS | Encounter Summary ---
Author Organization [facility] Address [address] [place] [address] Care Team Providers Care Hematology Oncology Consultant Name Role Phone Edson Jones MD Primary Care Provider [phone] Reason for Referral * Consultation (Urgent) - Closed Specialty Diagnoses / Procedures Referred By Mayo yan Referred To Contact Gastroenterology Diagnoses Proctocolitis without complication Procedures VA OFFICE/OUTPATIENT NEW MODERATE MDM 45 MINUTES Edson Jones MD [address] [place] [address] Phone: tel: fax: [facility] [address] [place] [id number] Phone: tel: fax: Referral ID Status Reason Start Date Expiration Date V isits Requested Visits Authorized [id number] Closed Specialty Services Required 12/30/2024 03/31/2026 1 1 Reason for Visit * Reason Comments Primary Care Follow-Up Encounter Details Date Type Department Care Team (Latest Contact Info) Description 12/30/2024 4:00 PM EDT Office Visit [facility] [address] [place] [address] Edson Jones MD [address] [facility] [place] [address] Proctocolitis without complication (Primary Dx) Social History Tobacco Use Types Packs/Day Years [...] on file documented as of this encounter Last Filed Vital Signs Vital Sign Reading Time Taken Comments Blood Pressure 138/79 12/30/2024 4:14 PM EDT Pulse 77 12/30/2024 4:14 PM EDT Temperature 36.3 C (97.3 F) 12/30/2024 4:14 PM EDT Respiratory Rate 18 12/30/2024 4:14 PM EDT Oxygen Saturation 98% 12/30/2024 4:14 PM EDT Inhaled Oxygen Concentration - - Weight 56.7 kg (125 lb) 12/30/2024 4:14 PM EDT Height 149.9 cm (4' 11 ) 12/30/2024 4:14 PM EDT Body Mass Index 25.25 12/30/2024 4:14 PM EDT documented in this encounter Progress Notes * Edson Jones MD - 12/30/2024 4:00 PM EDT Chief Complaint Primary Care Follow-Up Subjective Dayana Arndt presents to [facility] HPI The patient is a 59-year-old female who presents for follow-up from a recent hospitalization. She was evaluated at [facility] on 2024 after presenting to the ER with abdominal pain and not having a bowel movement in the previous week. She was admitted with a diagnosis of sepsis with proctocolitis and chronic constipation. During her hospitalization, she received IV fluids and IV Merrem 1 g every 8 hours. A right upper quadrant ultrasound was performed due to previous imaging seen on a CT scan of the liver, which showed no masses or tumors but did show fatty deposits.Repeat white blood cell count was 11.5 on 12/27/2024, and stool studies were negative. She was discharged on 12/27/2024 on Augmentin 500/125 mg 3 times a day. She reports that her abdominal pain has improved since yesterday but remains difficult to manage. Today, she experiences intermittent squeezing sensations throughout her abdomen. She has had diarrheasince Thursday and has not experienced any fevers. Her appetite is diminished, but she does not feel worse than before her hospital admission. She is not experiencing any vomiting but admits to nausea.She recalls feeling well at 5:30 AM on the day of her hospital admission but became ill within 5 minutes of taking Suboxone with water. She describes the squeezing sensation as feeling like a belt around her abdomen. She reports no urinary issues but did notice blood in her stool on Thursday. She finds it challenging to tolerate any tightness around her abdomen. She has been advised to undergo a colonoscopy, but no arrangements have been made yet. She is currently on amoxicillin and has not been prescribed steroids. She questions whether her symptoms could be related to a bite she received, forwhich she did not seek antibiotic treatment. Her leg was significantly red but has since improved. She has no prior history of these symptoms. OTHER NOTES: Review of Systems Respiratory: Negative. Cardiovascular: Negative. Gastrointestinal: Positive for abdominal pain and diarrhea. All other systems reviewed and are negative. Objective Vital Signs: BP 138/79 Pulse 77 Temp 97.3 ??F (36.3 ??C) Resp 18 Ht 149.9 cm (59 ) Wt 56.7 kg (125 lb) SpO2 98% BMI 25.25 kg/m?? Physical Exam Vitals and nursing note reviewed. Constitutional: General: She is not in acute distress. Appearance: Normal appearance. She is not ill-appearing or toxic-appearing. HENT: Head: Normocephalic. Neurological: Mental Status: She is alert. Psychiatric: Mood and Affect: Mood normal. Behavior: Behavior normal. Respiratory: Clear to auscultation, no wheezing, rales or rhonchi Cardiovascular: Regular rate and rhythm, no murmurs, rubs, or gallops Result Review : Other Results Results - Labs: - White blood cell count: 22,000 - White blood cell count (12/27/2024): 11.5 - Stool studies: Negative - Blood culture: Negative after 48 hours - Imaging: - CT scan of the abdomen with i.v. contrast: Severe proctocolitis with enlarged lymph nodes in the right inguinal region, right pelvic sidewall, and right external iliac chain - Right upper quadrant ultrasound: No masses or tumors but did show fatty deposits - Diagnostic Testing: - EKG: Sinus tachycardia Assessment and Plan Diagnoses and all orders for this visit: 1. Proctocolitis without complication (Primary) - Ambulatory Referral to Gastroenterology - dicyclomine (BENTYL) 10 MG capsule; One po q 6 hrs prn abd pain/ tighttness Dispense: 20 capsule;Refill: 1 DISCUSSION 1. Proctocolitis: The patient's initial white blood cell count was significantly elevated but has since returned to near-normal levels. She reports intermittent squeezing abdominal pain and diarrhea since Thursday. Stool studies were negative, and the patient has no fever. There was blood in the bowel movements initially, but not currently. A referral to a farm rancher will be made for further evaluation and potential colonoscopy once the infection is controlled. A prescription for Bentyl 10 mg to alleviate the squeezing sensation will be provided, with instructions to take it every 6 hours as needed. Suspect she is having spasms in the colon. She is advised to continue her Augmentin regimen. Fatty liver: The patient has fatty deposits in the liver as seen on the CT scan. Weight management and a healthydiet are recommended to control this condition. Follow Up Return if symptoms worsen or fail to improve. Patient was given instructions and counseling regarding her condition or for health maintenance advice. Please see specific information pulled into the AVS if appropriate. Edson Jones MD Patient or patient retail field representative verbalized consent for the use of Ambient Listening during the visit with Edson Jones MD for chart documentation. 12/30/2024 18:35 EDT documented in this encounter Plan of Treatment Upcoming Encounters Date Type Department Care Team (Late st Contact Info) Description 03/27/2025 3:45 PM EST Office Visit [facility] [address] [phone] Otoniel Krishnamurthy DO [address] [address] documented as of this encounter Visit Diagnoses Diagnosis Proctocolitis without complication- Primary documented in this encounter Care Teams Hematology Oncology Consultant Relationship Specialty Start Date End Date Edson Jones MD [address] [place] [address] PCP - General Family Medicine 10/07/22 documented as of this encounter
--- OUTSIDE RECORDS SUMMARY | 2025-02-06 16:15 | XMS_ITS | Encounter Summary ---
Author Organization [facility] Address [address] [place] [address] Care Team Providers Care Hog Confinement System Manager Name Role Phone Edson Jones MD Primary Care Provider [phone] Reason for Referral * Diagnostic Imaging (Routine) - Authorized Specialty Diagnoses / Procedures Referred By Contac t Referred To Contact Diagnoses Shoulder blade pain Nausea Procedures US Gallbladder Edson Jones MD [address] [place] [address] Phone: tel: fax: [facility] [address] [facility] [address] [place] [address] Phone: tel: fax: Referral ID Status Reason Start Date Expiration Date V isits Requested Visits Authorized [id number] Authorized 02/06/2025 05/08/2026 1 1 * Consultation (Routine) - Authorized Specialty Diagnoses / Procedures Referred By Contac t Referred To Contact Gastroenterology Diagnoses Proctocolitis Procedures DE OFFICE/OUTPATIENT NEW MODERATE MDM 45 MINUTES Edson Jones MD [address] [place] [address] Phone: tel: fax: Raymond Cornejo MD [address] [place] [address] [place] [address] Phone: tel: fax: Referral ID Status Reason Start Date Expiration Date Visits Requested Visits Authorized [id number] Authorized Specialty Services Required 02/06/2025 05/08/2026 1 1 Reason for Visit * Reason Comments Shoulder Pain Encounter Details Date Type Department Care Team (Latest Contact Info) Description 02/06/2025 4:15 PM EST Office Visit [facility] [address] [place] [address] Edson Jones MD [address] [place] [address] Proctocolitis (Primary Dx); Shoulder blade pain; Nausea Social History Tobacco Use Types Packs/Day Years [...] Sign Reading Time Taken Comments Blood Pressure 118/78 02/06/2025 4:13 PM EST Pulse 62 02/06/2025 4:13 PM EST Temperature 36.5 C (97.7 F) 02/06/2025 4:13 PM EST Respiratory Rate 18 02/06/2025 4:13 PM EST Oxygen Saturation 95% 02/06/2025 4:13 PM EST Inhaled Oxygen Concentration - - Weight 58.1 kg (128 lb) 02/06/2025 4:13 PM EST Height 149.9 cm (4' 11 ) 02/06/2025 4:13 PM EST Body Mass Index 25.85 02/06/2025 4:13 PM EST documented in this encounter Progress Notes * Edson Jones MD - 02/06/2025 4:15 PM EST Chief Complaint Shoulder Pain Subjective Dayana Arndt presents to [facility] HPI The patient is a 59-year-old female who presents for a follow-up evaluation of shoulder pain. She reports experiencing intermittent right shoulder blade pain for the past few months, which she describes as different from her previous shoulder pain. The intensity of the pain varies, with some days being more intense than others. Her previous shoulder pain has improved but still occasionally flares up. She does not experience any associated rashes. She also mentions frequent episodes of nausea and has not undergone an ultrasound of her gallbladder. She has been experiencing numbness on the right side of her face, which she suspects may be relatedto possible multiple sclerosis (MS). She is under the care of Cinthia Vo for this condition and has sought a second opinion from a specialist in [place]. Although she has not received an official diagnosis, she believes it is highly likely that she has MS. She declined a lumbar puncture due toa previous experience with a spinal headache following a myelogram. She reports an increase in headaches and muscle soreness in her buttocks and legs upon waking yesterday, which was severe enough toimpede her walking. She also experiences difficulty breathing when lying down, sometimes accompanied by pressure. She reports no new neurological symptoms such as tingling or numbness in her legs. She has vision problems, particularly with reading numbers, and experiences pain behind her right eyeball, occasionally affecting both eyes. She always feels tired and exhausted. She has noticed increased redness in her cheeks and intolerance to cold weather. She experiences facial tingling, which starts in her cheek and travels up to the top of her head, particularly when she is aggravated. She was hospitalized in 11/2024 due to an intestinal infection, which she attributes to food consumption. A CT scan revealed colitis, and her white blood cell count was elevated at 22,000. She testednegative for C. difficile. She has been experiencing a metallic taste in her mouth and has not had a colonoscopy. She was referred to a broadcast operations manager but forgot about the appointment. Sleep: She always feels tired and exhausted. PAST SURGICAL HISTORY: Myelogram years ago. FAMILY HISTORY - Maternal grandmother from colon cancer OTHER NOTES: Review of Systems Respiratory: Negative. Cardiovascular: Negative. Gastrointestinal: Negative. Musculoskeletal: Positive for arthralgias. All other systems reviewed and are negative. Objective Vital Signs: BP 118/78 Pulse 62 Temp 97.7 ??F (36.5 ??C) Resp 18 Ht 149.9 cm (59 ) Wt 58.1 kg (128 lb) SpO2 95% BMI 25.85 kg/m?? Physical Exam Vitals and nursing note reviewed. Constitutional: General: She is not in acute distress. Appearance: Normal appearance. She is not ill-appearing or toxic-appearing. HENT: Head: Normocephalic. Neurological: Mental Status: She is alert. Psychiatric: Mood and Affect: Mood normal. Behavior: Behavior normal. Neurological: Patient reports facial numbness on the right side, which worsens with aggravation andtravels from the cheek to the top of the head. Eyes: Patient reports vision problems, including seeing numbers backwards and pain in the right eye, sometimes both eyes. Respiratory: Patient reports struggling to breathe, especially when lying down, sometimes feeling pressure. Musculoskeletal: Right shoulder: No pain on movement or palpation. Good range of motion. Pain localized behind the shoulder blade, likely muscular. Result Review : Other Results Results - Labs: - White blood cell count: 22,000 - Imaging: - CT scan of the intestines: Severe proctocolitis with thickening and inflammation in the rectum, sigmoid, descending, transverse colon Assessment and Plan Diagnoses and all orders for this visit: 1. Proctocolitis (Primary) - Ambulatory Referral to Gastroenterology 2. Shoulder blade pain - US Gallbladder; Future 3. Nausea - US Gallbladder; Future DISCUSSION 1. Right shoulder blade pain: The pain has been ongoing for a couple of months and is periodic. The pain is localized behind the shoulder blade and is not present in the joint. An ultrasound of the gallbladder will be ordered to rule out gallstones or gallbladder dysfunction. If the ultrasound is normal and symptoms persist, a f unction test may be considered. 2. Suspected multiple sclerosis: The patient reports facial numbness, increased headaches, vision problems, and muscle soreness. Previous MRI from 10/2023 showed areas of concern in the brain. She is scheduled for a second opinion in [place] on 03/09/2025. A new MRI may be conducted during this visit. 3. Severe proctocolitis: The patient was hospitalized in 11/2024 for severe proctocolitis, confirmed by a CT scan showing thickening and inflammation in the rectum, sigmoid, descending, and transverse colon. Stool studies were negative for common bacterial infections. A referral to Dr. Cornejo, a broadcast operations manager, will be made for further evaluation and a potential colonoscopy to determine the type of colitis and rule out other conditions like Crohn's disease or ulcerative colitis. Follow Up Return if symptoms worsen or fail to improve. Patient was given instructions and counseling regarding her condition or for health maintenance advice. Please see specific information pulled into the AVS if appropriate. Edson Jones MD Patient or patient insurance claims representative verbalized consent for the use of Ambient Listening during the visit with Edson Jones MD for chart documentation. 02/06/2025 18:34 EST documented in this encounter Plan of Treatment Upcoming Encounters Date Type Department Care Team (Late st Contact Info) Description 03/27/2025 3:45 PM EST Office Visit [facility] R[facility] [address] [address] Otoniel Krishnamurthy DO [address] [address] Scheduled Orders Name Type Priority Associated Diagnoses Orde r Schedule US Gallbladder Imaging Routine Shoulder blade pain Nausea Expected: 02/07/2025, Expires: 02/06/2026 documented as of this encounter Visit Diagnoses Diagnosis Proctocolitis- Primary Ulcerative (chronic) proctitis Shoulder blade pain Pain in joint, shoulder region Nausea Nausea alone documented in this encounter Care Teams Hog Confinement System Manager Relationship Specialty Start Date End Date Edson Jones MD [address] [place] [id number] PCP - General Family Medicine 10/07/22 documented as of this encounter
[2025-02-19] VITALS (12 sets, daily range): BP systolic 102–155; BP diastolic 52–93; PULSE 70–95; RESP 15–16; TEMP 36.6–36.8; O2SAT 95–99; BMI 25.8
--- NOTE | 2025-02-19 07:16 | CT_ITS ---
PROCEDURE INFORMATION: Exam: CT Abdomen And Pelvis With Contrast Exam date and time: 02/19/2025 8:10 AM Age: 59 years old Clinical indication: Abdominal pain; Prior surgery; Surgery date: 6+ months; Surgery type: Hysterectomy; Additional info: Lower abdominal pain since 6am, history of colitis TECHNIQUE: Imaging protocol: Computed tomography of the abdomen and pelvis with contrast. Radiation optimization: All CT scans at this facility use at least one of these dose optimization techniques: automated exposure control; mA and/or kV adjustment per patient size (includes targeted exams where dose is matched to clinical indication); or iterative reconstruction. Contrast material: ISOVUE; Contrast volume: 75 ml; Contrast route: IV; COMPARISON: CT ABDOMEN PELVIS W CON 12/26/2024 4:36 PM FINDINGS: Liver: 10 mm nodule in the right lobe of the liver is not cystic (series 3, image 36). 10 mm hypodensity in the dome of the liver may represent small hemangioma.. Gallbladder and biliary ducts: The gallbladder is unremarkable Pancreas: Pancreatic atrophy Spleen: Normal. No splenomegaly. Adrenal glands: Normal. No mass. Kidneys and ureters: Normal. No hydronephrosis. Stomach and bowel: Fluid-filled loops of small bowel with enhancing mucosa may represent enteritis. Appendix: Normal appendix series 3, image [id number] Intraperitoneal space: Minimal free fluid in the pelvis Vasculature: Unremarkable. No abdominal aortic aneurysm. Lymph nodes: Unremarkable. No enlarged lymph nodes. Urinary bladder: Unremarkable as visualized. Reproductive: Surgical resection of the uterus Bones/joints: Unremarkable. No acute fracture. Soft tissues: Unremarkable. IMPRESSION: 1. Fluid-filled loops of small bowel with enhancing mucosa may represent enteritis. 2. 10 mm nodule in the right lobe of the liver is not cystic (series 3, image 36). 10 mm hypodensity in the dome of the liver may represent small hemangioma.. Recommend liver MRI
--- NOTE | 2025-02-19 07:18 | HMH.EDGENADL ---
Discharge Plan Disposition Patient Disposition: Home, Self-Care Prescriptions Prescriptions: New amoxicillin-pot clavulanate [Augmentin] 500-125 mg tablet 1 tab PO BID Qty: 14 0RF ondansetron 4 mg tablet,disintegrating 4 mg PO DAILY PRN (Reason: nausea and vomiting) 4 Days Qty: 12 0RF prochlorperazine maleate [Compazine] 5 mg tablet 5 mg PO DAILY Qty: 30 0RF dicyclomine 10 mg capsule 10 mg PO BID Qty: 10 0RF No Action clonidine HCl 0.2 mg Tablet 0.2 mg PO DAILY bupropion HCl 150 mg tablet extended release 24 hr 150 mg PO DAILY Patient Comments: TAKE 1 TABLET BY MOUTH EVERY DAY levofloxacin 750 mg tablet 750 mg PO DAILY 5 Days Qty: 5 0RF ondansetron 4 mg tablet,disintegrating 4 mg PO Q8H PRN (Reason: nausea and vomiting) Qty: 14 0RF amoxicillin-pot clavulanate [Augmentin] 500-125 mg tablet 1 tab PO TID 5 Days Qty: 15 0RF buprenorphine-naloxone 1 EACH tablet, sublingual 1 each SL DIRECTED Rx Instructions: Patient takes 1 tablet one day, then 1/2 tablet the next, alternating. Patient took 1 full tablet 12/26/24 at home. Referrals Follow up/Referrals: Edson Jones MD [Primary Care Provider, Medical] - See instructions Clinical Impressions Clinical Impression: Abdominal pain, Enteritis Instructions Patient Instructions: DI for Acute Abdominal Pain Print Language Print Language: Arabic Discharge ED Provider: Enoch Meza General Adult HPI General Chief complaint: Abdominal Pain Stated complaint: severe abd pain Time Seen by Provider: 02/19/25 07:13 History of Present Illness HPI narrative: Patient is a 59-year-old female past surgical history of hysterectomy who presents due to significant lower abdominal pain that started approximately 6 AM. The onset was acute. Has not been associated with diarrhea or vomiting to this point though she feels slightly nauseous. She does not take blood thinners does not have diabetes. Is on Wellbutrin and clonidine. Is being worked up for possible multiple sclerosis. As for the past year she has had difficulties reading and seeing words backwards as well as vague headaches and abnormal brain MRI. She had colitis last month that was treated with antibiotics and felt similar in character to her present symptoms. Related Data Home Medications ?Medication ?Instructions ?Recorded ?Confirmed buprenorphine 8 mg-naloxone 2 mg 1 each SL DIRECTED 12/26/20 12/27/24 sublingual tablet bupropion HCl 150 mg 24 hr tablet, 150 mg PO DAILY 12/26/24 12/26/24 extended release clonidine HCl 0.2 mg tablet 0.2 mg PO DAILY 12/26/24 12/26/24 Previous Rx's ?Medication ?Instructions ?Recorded amoxicillin 500 mg-potassium 1 tab PO TID 5 days #15 tabs 12/27/24 clavulanate 125 mg tablet (Augmentin) levofloxacin 750 mg tablet 750 mg PO DAILY 5 days #5 tabs 12/27/24 ondansetron 4 mg disintegrating 4 mg PO Q8H PRN nausea and 12/27/24 tablet vomiting #14 tabs amoxicillin 500 mg-potassium 1 tab PO BID #14 tabs 02/19/25 clavulanate 125 mg tablet (Augmentin) dicyclomine 10 mg capsule 10 mg PO BID #10 caps 02/19/25 ondansetron 4 mg disintegrating 4 mg PO DAILY PRN nausea and 02/19/25 tablet vomiting 4 days #12 tabs prochlorperazine maleate 5 mg 5 mg PO DAILY #30 tabs 02/19/25 tablet (Compazine) Allergies Allergy/AdvReac Type Severity Reaction Status Date / Time No Known Allergies Allergy Verified 04/21/18 19:03 [facility] Disclaimer: The information contained in this section may have been updated after the patient was seen, as this information can be updated by other users. Medical History (Updated 02/19/25 @ 11:57 by Enoch Meza MD) Hypertension Opioid use disorder Surgical History (Updated 12/26/24 @ 19:40 by Vilma Sanchez RN) History of hysterectomy H/O: Social History (Updated 12/26/24 @ 19:40 by Vilma Sanchez RN) Smoking Status: Never smoker second hand exposure: No alcohol intake: never current occupational status: other Travel in the last 8 weeks?: None housing: house Have you lived/traveled outside US in past 30 days?: No Contact w/someone who lives/traveled outside US past 30 days?: No Exposure to someone with infectious disease in past 14 days?: No Do you have a fever (greater than 100.4 F or 38 C)?: No Have you tested positive for COVID-19?: No Exposed to someone with COVID-19 in past 14 days?: No Do you have a sore throat?: No Do you have a cough?: No Do you have any weakness?: No Do you have any diarrhea?: No Are you experiencing any unusual bleeding?: No Do you have any muscle aches/pain?: No Do you have any abdominal pain?: Yes Are you experiencing loss of taste or smell?: No Other Medical History Have you received the Flu Vaccine for this season: No Have you received the Pneumonia Vaccine: No ROS Obtained: Yes Systems reviewed as appropriate & no additional complaints except as documented Physical Exam General General appearance: alert Comment: Mild distress Head Head exam: atraumatic Eye Eye exam: Present normal appearance ENT ENT exam: Present normal exam Neck Neck exam: Present normal inspection Chest Chest inspection: Present normal inspection Respiratory Respiratory exam: Present normal lung sounds bilaterally Cardiovascular Cardiovascular exam: Present regular rate and normal rhythm Abdominal Exam Abdominal exam: Present soft Comment: No guarding mild diffuse lower abdominal tenderness Neurological Exam Neurological exam: Present alert, oriented X3 and CN II-XII intact Psychiatric Psychiatric exam: Present normal affect Skin Skin exam: Present warm Lymphatic Lymphatic Findings: no adenopathy Medical Decision Making Medical Records Screening: Per USPSTF and CDC recommendations, given the prevalence of disease in our region, it is our hospital?s policy to screen for HIV and viral Hepatitis for all patients aged 18 and over and those with ongoing risk factors. Robin Inquiry Pt receiving controlled substance: Yes Robin was queried for this patient: No Reason not queried -: Emergent pt cond-no time Risks and benefits of using a controlled substance: were discussed with pt by me Vital Signs: 02/19/25 07:13 02/19/25 07:17 02/19/25 07:30 Temperature 98.2 F Temperature Source Oral Pulse Rate 94 H 85 Pulse Rate [Right Radial] 95 H Respiratory Rate 16 Blood Pressure 155/93 H 142/76 H Blood Pressure [Right Arm] 155/93 H Blood Pressure Mean Blood Pressure Mean [Right Arm] 113 Blood Pressure Source [Right Arm] Automatic Cuff Blood Pressure Position [Right Arm] Sitting 02 Sat by Pulse Oximetry 97 98 97 Oxygen Delivery Method Room Air 02/19/25 08:00 02/19/25 08:17 02/19/25 08:25 Temperature Temperature Source Pulse Rate 72 93 H Pulse Rate [Right Radial] Respiratory Rate Blood Pressure 118/67 137/80 Blood Pressure [Right Arm] Blood Pressure Mean 99 Blood Pressure Mean [Right Arm] Blood Pressure Source [Right Arm] Blood Pressure Position [Right Arm] 02 Sat by Pulse Oximetry 96 96 Oxygen Delivery Method 02/19/25 08:30 02/19/25 08:45 02/19/25 09:00 Temperature Temperature Source Pulse Rate 80 76 81 Pulse Rate [Right Radial] Respiratory Rate Blood Pressure 141/80 H 126/88 Blood Pressure [Right Arm] Blood Pressure Mean Blood Pressure Mean [Right Arm] Blood Pressure Source [Right Arm] Blood Pressure Position [Right Arm] 02 Sat by Pulse Oximetry 98 95 95 Oxygen Delivery Method 02/19/25 11:00 02/19/25 11:30 Temperature Temperature Source Pulse Rate 72 70 Pulse Rate [Right Radial] Respiratory Rate Blood Pressure 102/52 L 104/54 L Blood Pressure [Right Arm] Blood Pressure Mean Blood Pressure Mean [Right Arm] Blood Pressure Source [Right Arm] Blood Pressure Position [Right Arm] 02 Sat by Pulse Oximetry 96 95 Oxygen Delivery Method Lab Data Lab Results 02/19/25 07:18: WBC 7.4, RBC 4.67, Hgb 13.5, Hct 40.0, MCV 85.7, MCH 28.9, MCHC 33.8, RDW 12.1, Plt Count 276, MPV 9.4, Neut % (Auto) 60.5, Lymph % (Auto) 28.1, [place] % (Auto) 7.6, Eos % (Auto) 2.4, Baso % (Auto) 1.1, Neut # (Auto) 4.5, Lymph # (Auto) 2.1, [place] # (Auto) 0.6, Eos # (Auto) 0.2, Baso # (Auto) 0.1, ESR 27, VBG pH 7.33, VBG pCO2 53.4 H, VBG pO2 30.2, VBG HCO3 27.6, VBG Total CO2 29.2 H, VBG O2 Saturation 56.3, VBG Base Excess 1.7, VBG Lactic Acid 1.9, Sodium 140, Potassium 4.0, Chloride 103, Carbon Dioxide 28, Anion Gap 13.0, BUN 15, Creatinine 0.90, Estimated Creat Clear 62, Estimated GFR 64, Est GFR ( Amer) 78, Glucose 120 H, Calcium 9.4, Magnesium 2.2, Total Bilirubin 0.5, AST 29, ALT 18, Alkaline Phosphatase 88, C-Reactive Protein 10.6 H, Total Protein 7.6, Albumin 4.3, Globulin 3.3 H, Albumin/Globulin Ratio 1.3, HCV Ab MIGUEL w/Rflx PCR Qn Negative, HIV Ag/Ab Combo Qual Negative 02/19/25 07:24: Lipase 59 02/19/25 08:21: Urine Color Yellow, Urine Appearance Clear, Urine pH 6.0, Ur Specific [place] <= 1.005, Urine Protein Negative, Urine Glucose (UA) Negative, Urine Ketones Negative, Urine Blood Trace-i, Urine Nitrate Negative, Urine Bilirubin Negative, Urine Urobilinogen 0.2, Ur Leukocyte Esterase Negative, Urine RBC Occasional, Urine WBC 3-5, Ur Squamous Epith Cells 3-5, Urine Bacteria Trace 02/19/25 07:18 02/19/25 07:18 Orders (Tests/Meds): ED MEDICATIONS Generic Name Dose Route Start Last Admin Trade Name Lara PRN Reason Stop Dose Admin Sodium Chloride 10 ml 02/19/25 08:11 02/19/25 08:12 Sodium Chloride 0.9% 10ml Syr (Rad Only) IV 03/21/25 08:10 10 ml NEEDED PRN Administration Maintain IV Site Discontinued Medications Generic Name Dose Route Start Last Admin Trade Name Lara PRN Reason Stop Dose Admin Diphenhydramine HCl 25 mg 02/19/25 09:18 02/19/25 09:50 Diphenhydramine 50mg/Ml Vial IV 02/19/25 09:19 25 mg ONCE ONE Administration Hydromorphone HCl 0.5 mg 02/19/25 08:15 02/19/25 08:20 Hydromorphone 2mg/Ml Syringe IV 02/19/25 08:16 0.5 mg ONCE ONE Administration Lactated Ringer's 500 mls @ 999 mls/hr 02/19/25 07:31 02/19/25 08:15 Lactated Ringer's 1000 Ml Bag IV 02/19/25 08:01 Infused .Q31M ONE Infusion Ampicillin Sodium/Sulbactam 100 mls @ 200 mls/hr 02/19/25 09:53 02/19/25 11:07 Sodium 3 gm/ Sodium Chloride IV 02/19/25 09:54 Infused ONCE ONE Infusion Iopamidol 75 ml 02/19/25 08:11 02/19/25 08:12 Iopamidol-370 (76%);100ml Bottle IV 02/19/25 08:12 75 ml ONCE ONE Administration Ketorolac Tromethamine 15 mg 02/19/25 09:17 02/19/25 09:49 Ketorolac 15mg/Ml Vial IV 02/19/25 09:18 15 mg ONCE ONE Administration Morphine Sulfate 4 mg 02/19/25 07:16 02/19/25 07:25 Morphine 4mg/Ml Syringe IV 02/19/25 07:17 4 mg ONCE ONE Administration Ondansetron HCl 4 mg 02/19/25 07:16 02/19/25 07:24 Ondansetron 4mg/2ml Vial IV 02/19/25 07:17 4 mg ONCE ONE Administration Prochlorperazine Edisylate 5 mg 02/19/25 09:18 02/19/25 09:51 Prochlorperazine 10mg/2ml Vial IV 02/19/25 09:19 5 mg ONCE ONE Administration ORDERS Category Date Time Status CT abdomen pelvis w con Stat Cat Scan 02/19/25 07:16 Completed CBC w/Auto Diff [Complete Blood Count Auto Diff] Stat Lab 02/19/25 07:18 Completed CMP [Comprehensive Metabolic Panel] Stat Lab 02/19/25 07:18 Completed CRP [C-Reactive Protein] Stat Lab 02/19/25 07:18 Completed ESR [Erythrocyte Sedimentation Rate] Stat Lab 02/19/25 07:18 Completed HIV Combo Stat Lab 02/19/25 07:18 Completed Hepatitis C Ab Qual. W/ RFX Stat Lab 02/19/25 07:18 Completed Lipase Stat Lab 02/19/25 07:24 Completed Magnesium Stat Lab 02/19/25 07:18 Completed Urinalysis and Microscopic Stat Lab 02/19/25 08:21 Completed VBG [Venous Blood Gas] Stat RT 02/19/25 07:18 Completed EKG Request [ECG Request] Stat Y 02/19/25 07:16 Ordered ECG Data Tracing #1: I reviewed this ECG and interpreted as documented below: sinus rhythm, no stemi, nonspeicific st abnormality in v3 and v4 appears unchanged from prior comparison ecg in November Normal Sinus Rhythm: Yes Ischemic changes: non-specific ST-T wave changes ECG compared to prior tracings: there are no significant changes Medical Decision Narrative: vbg with mild compensated chronic respiratory acidosis lab eval significant for no leukocytosis or aneia normal lactate no renal or hepatic dysfunction slight crp elevation ct scan with enteritis without significant abscess, evidence of perforation urine contaminated, but not obviously infected hemangioma likely on liver, discussed this with patient and daughter while in the ed, patient got morphine, zofran, compazine, toradol, and dilaudid. her best response was from the toradol after a period of about 4 hours of observation, she did toelrate some water, and urinated several times with improved, though not completely resolved pain had a long discussion with patient and daughter on her diagnosis she was agreeable to fu with gi physician for further workup of her inflammatory condition discussed that she may have infectious versus noninfectous enteritis, but given her response to abx as well as evident response to one dose of unasyn in house, felt augmentin script benefit outweighed risks she had non-lengthed qtc and tolerated zofran and compazien while in the ed, wrote scripts for these and bentyl as well for sympotmatic control should she fail to remain adequately hydrated or have worsening uncontrolled pain despite treatment as outlined above, discussed with her that she should return to the ed for re-evalution patient and daughter amenable to the plan of discharge at this time with strict return precautions Critical Care Critical Care Time Critical Care Time: No
--- NOTE | 2025-02-19 07:22 | PC.NURSE ---
resp notified of vbg
[2025-02-19] MEDS: ONDANSETRON 4MG/2ML VIAL 4 MG IV (07:24)
[2025-02-19] MEDS: MORPHINE 4MG/ML SYRINGE 4 MG IV (07:25)
--- OUTSIDE RECORDS SUMMARY | 2025-02-19 07:25 | XMS_ITS | Encounter Summary ---
[facility] Address [address] [place] [address] Care Team Providers Care Waste Treatment Operator Name Role Phone Edson Jones MD Primary Care Provider [phone] Encounter Details Date Type Department Care Team (Latest Contact Info) Description 02/06/2025 Travel Social History Tobacco Use Types Packs/Day Years [...] 03/27/2025 3:45 PM EST Office Visit [facility] RHEUMATOLOGY [address] [address] Otoniel Krishnamurthy DO [address] [address] documented as of this encounter Visit Diagnoses Not on filedocumented in this encounter Care Teams Waste Treatment Operator Relationship Specialty Start Date End Date Edson Jones MD [address] [place] [id number] PCP - General Family Medicine 10/07/22 documented as of this encounter
--- OUTSIDE RECORDS SUMMARY | 2025-02-19 07:25 | XMS_ITS | Clinical Summary ---
Author Organization [facility] Address [address] [place] [id number] Care Team Providers Care Preparation Room Worker Name Role Phone Edson Jones MD Primary Care Provider [phone] Allergies Active Allergy Reactions Criticality Noted Date Comments Sulfamethoxazole-Trime thoprim Other (See Comments) Medium 10/18/2024 Patient thinks she is allergic to Bactrim unsure of the reaction she had Clindamycin/Lincomycin GI Intolerance Medium 5 Doxycycline GI Intolerance High 10/18/2024 Medications buprenorphine-nalo xone (SUBOXONE) 8-2 MG per SL tablet Place 1 tablet under the tongue Daily. Active cyanocobalamin 1000 MCG/ML injectionIndicatio ns:B12 deficiency [...] 5 Active vitamin D (ERGOCALCIFEROL) 1.25 MG (03546 UT) capsule capsuleIndications :Vitamin D deficiency Take 1 capsule by mouth 1 (One) Time Per Week. 13 capsule 3 5 Active amoxicillin-clavul anate (Augmentin) 500-125 MG per tabletIndications: Proctocolitis without complication Take 1 tablet by mouth 2 (Two) Times a Day. 5 Active dicyclomine (BENTYL) 10 MG capsuleIndications :Proctocolitis without complication One po q 6 hrs prn abd pain/ tighttness 20 capsule 1 5 Active ondansetron ODT (ZOFRAN-ODT) 4 MG disintegrating tabletIndications: Nausea DISSOLVE 1 TABLET IN MOUTH EVERY 8 HOURS NEEDED FOR NAUSEA FOR VOMITING 15 tablet 5 Active Active Problems Problem Noted Date Diagnosed Date Systemic sclerosis 09/23/2024 Assessment & Plan (09/23/2024 1:59 PM EDT): 05/20/23: FANNY 1:160 speckled, SCL 70 1.7 (<0.9), LINEN SUPERVISOR normal, Jones normal, Chromatin normal, Mitali 1 [...] thout status migrainosus, not intractable 05/20/2023 COVID-19 daniel menard manifes ting chronic neurologic symptoms 05/20/2023 Cognitive [...] Encounters Date Type Department Care Team Description 02/06/2025 4:15 PM EST Office Visit [facility] [address] [facility] [place] [address] Edson Jones MD Proctocolitis (Primary Dx); Shoulder blade pain; Nausea 02/06/2025 Travel 12/31/2024 Refill [facility] [address] [facility] [place] [phone] Edson Jones MD Nausea 12/30/2024 4:00 PM EDT Office Visit [facility] [address] [facility] [place] [address] Edson Jones MD Proctocolitis without complication (Primary Dx) 12/30/2024 Travel 11/24/2024 Refill [facility] [address] [facility] [place] [address] Edson Jones MD Cellulitis of right lower extremity from Last 3 Months Immunizations Immunization Administration [...] Renan Mcdermott Alive Brother 2 Alive Father pAarna Mcdermott Maternal Grandmother Mother Lizz Mcdermott Alive [...] Mass Index 25.85 02/06/2025 4:13 PM EST Plan of Treatment Upcoming Encounters Date Type Department Care Team (Late st Contact Info) Description 03/27/2025 3:45 PM EST Office Visit [facility] RHEUMATOLOGY [address] [place] [phone] Otoniel Krishnamurthy, DO [address] [place] [address] Health Maintenance Due Date Last Done Comments Annual Gynecologic Pelvic an d Breast Exam 1965 COLOGUARD 12/27/2011 COLON CANCER SCREENING 5 YEA R SIGMOIDOSCOPY 12/27/2011 COLONOSCOPY 12/27/2011 CT COLONOGRAPHY 12/27/2011 FECAL OCCULT BLOOD TEST 12/27/2011 FIT Testing (1 year) 12/27/2011 Pneumococcal Vaccine 50+ (1 of 1 - PCV) 2016 ZOSTER VACCINE (1 of 2) 2016 ANNUAL PHYSICAL 11/30/2017 LIPID PANEL 01/25/2025 01/26/2024, 05/20/2023 INFLUENZA VACCINE 06/28/2025 Postponed from 09/30/2024 (Patient Refused) COLORECTAL CANCER SCREENING 09/21/2025 Postponed from 12/27/2011 (Patient Refused) MAMMOGRAM 09/21/2025 Postponed from 2006 (Patient Refused) TDAP/TD VACCINES (2 - Td or Tdap) 10/30/2025 10/31/2015 HEPATITIS C SCREENING Completed 05/20/2023 Procedures Procedure Name Priority Date/Time Associated Diagnosis Comments LIPID PANEL W/ CHOL/HDL RATIO Routine 01/26/2024 3:37 PM EST Mixed hyperlipidemia HEPATITIS PANEL, ACUTE Routine 05/20/2023 10:11 AM EDT Demyelinating changes in brain Memory loss Vision changes from Last 3 Months or Most Recently Relevant to Health Maintenance Results * (ABNORMAL) Lipid Panel With / Chol [...] Blood 01/26/2024 3:37 PM EST 01/26/2024 Narrative [facility] (AMBULATORY) - 01/27/2024 10:36 AM EST Performed at: 01 - [facility] [address] [id number] Living Advisor: Scar Lam PhD, Phone: [phone] Patient Fasting: N Edson Jones MD LAB BLOOD ORDERABLES Final Resu lt Performing Organization Address [facility] Co de Phone Number [facility] [address] [place] [id number], [facility] [address] [place] [address], * Hepatitis Panel, Acute (05/20/2023 10:11 AM EDT) Hepatitis B Surface Ag Non-Reacti ve Non-Reacti ve 05/20/2023 7:32 PM EDT [facility] Hep A IgM Non-Reacti ve Non-Reacti ve 05/20/2023 7:32 PM EDT [facility] Hep B C IgM Non-Reacti ve Non-Reacti ve 05/20/2023 7:32 PM EDT [facility] Hepatitis C Ab Non-Reacti ve Non-Reacti ve 05/20/2023 7:32 PM EDT [facility] Blood Venipuncture / Unknown 05/20/2023 10:11 AM EDT 05/20/2023 10:12 AM EDT [facility] - 05/20/2023 7:32 PM EDT Results may be falsely decreased if patient taking Biotin. Cinthia Vo APRN LAB BLOOD ORDERABLES Fi nal Result [facility]
[address] [place] [address], from Last 3 Months or Most Recently Relevant to Health Maintenance Insurance [employer] Care Teams Preparation Room Worker Relationship Specialty Start Date End Date Edson Jones MD [address] [place] [address] PCP - General Family Medicine 10/07/22
--- OUTSIDE RECORDS SUMMARY | 2025-02-19 07:25 | XMS_ITS | Encounter Summary ---
[facility] Address [address] [place] [id number] Care Team Providers Care Director Data Analytics Name Role Phone Edson Jones MD Primary Care Provider [phone] Encounter Details Date Type Department Care Team (Late Contact Info) Description 06/14/2024 Results Follow-Up [facility] FAMILY MEDICINE [address] [place] [address] Edson Jones MD [address] [place] [address] Social History Tobacco Use Types [...] Description 03/27/2025 3:45 PM EST Office Visit [facility] RHEUMATOLOGY [address] [phone] Otoniel Krishnamurthy DO [address] [address] documented as of this encounter Visit Diagnoses Not on filedocumented in this encounter Care Teams Director Data Analytics Relationship Specialty Start Date End Date Edson Jones MD [address] [place] [address] PCP - General Family Medicine 10/07/22 documented as of this encounter
--- OUTSIDE RECORDS SUMMARY | 2025-02-19 07:25 | XMS_ITS | Clinical Summary ---
Author Organization Healthcare Address [address] [place] [address] Care Team Providers Care Relationship Executive Name Role Phone Unavailable Primary Care Provider [...] Date Last Done Comments [facility]-Depression Screening 1966 [facility]-Infant/Child/Adol SDOH Screenings 1966 [facility]- SDOH Screenings 1984 [facility]-Adult SDOH Screenings 1984 [facility]-Pap Smear 12/27/1987 [facility]-Cervical Cancer Screening 1996 [facility]-HPV/Cotest 1996 CT Colonography 12/27/2011 Colonoscopy 12/27/2011 FIT-DNA 12/27/2011 FIT 12/27/2011 FOBT 12/27/2011 Sigmoidoscopy 12/27/2011 [facility]-Colorectal Cancer Screening 12/27/2011 [facility]-Pneumococcal Vaccine: 50 + Years (1 of 1 - PCV) 2016 [facility]-Zoster Vaccines (1 of 2) 2016 [id number] Vaccine (1 - 2024- season) 2024 [facility]-Influenza Vaccine (#1) 2024 [facility]-DTaP,Tdap,and Td Vaccine s (2 - Td or Tdap) 10/30/2025 10/31/2015 [facility]-Hepatitis B Vaccines Completed 017, 06/30/2016, 10/31/2015 HPV Vaccines (No Doses Required) Completed [facility]-HIB Vaccines Aged Out No longer e [...] patient's age to complete this topic Insurance [facility] [employer] MEDICAID
--- OUTSIDE RECORDS SUMMARY | 2025-02-19 07:25 | XMS_ITS | Encounter Summary ---
[facility] Address [address] [place] [address] Care Team Providers Care Manager Outreach Name Role Phone Edson Jones MD Primary Care Provider [phone] Encounter Details Date Type Department Care Team (Latest Contact Info) Description 12/30/2024 Travel Social History Tobacco Use Types Packs/Day [...] Description 03/27/2025 3:45 PM EST Office Visit [facility] RHEUMATOLOGY [address] [address] Otoniel Krishnamurthy DO [address] [address] documented as of this encounter Visit Diagnoses Not on filedocumented in this encounter Care Teams Manager Outreach Relationship Specialty Start Date End Date Edson Jones MD [address] [place] [id number] PCP - General Family Medicine 10/07/22 documented as of this encounter
--- OUTSIDE RECORDS SUMMARY | 2025-02-19 07:25 | XMS_ITS | Clinical Summary ---
Author Organization [employer] [facility] lin Address [address] [facility] [place] [address] Care Team Providers Care Medical Supply Technician Name Role Phone Unavailable Primary Care Provider Unavailabl e Allergies No known active allergies Medications buprenorphine-n aloxone (SUBOXONE) 8-2 mg SL tablet Dissolve 1&1/2 tablets under the tongue daily 04/23/2020 Active buPROPion (WELLBUTRIN XL) 300 MG 24 hr tablet TAKE 1 TABLET BY MOUTH EVERY DAY 03/13/2020 Active cloNIDine HCL (CATAPRES) 0.2 MG tablet TAKE 1 TABLET BY MOUTH EVERY 12 HOURS 03/13/2020 Active cyanocobalamin 1,000 mcg/mL injection 04/10/2020 Active Social History Tobacco Use Types Packs/Day Years Used Date Smoking Tobacco: Never Assessed Comments Unknown Sex and Gender Information Value Date Recorded Sex Assigned at Not on file Legal Sex Female 12:55 PM EST Gender Identity Not on file Sexual Orientation Not on file Plan of Treatment Not on file Medical Devices Not on file
--- OUTSIDE RECORDS SUMMARY | 2025-02-19 07:25 | XMS_ITS | Clinical Summary ---
Author Organization [employer] ([place], [place], [place], [place], [place]) Address [address] [place] [address] Care Team Providers Care Human Services Professional Name Role Phone Unavailable Primary Care Provider [...] Date Juan rded Speak language other than Jordanian at home Not on file 06/19/2023 Want [...] Counseling and Screening (12+) 06/2206/23/2023 COVID-19 VACCINE ( - 2023- season) 2024 Influenza Vaccine (#1) 2024 DTAP/TDAP/TD VACCINES (2 - Td or Tdap) 10/30/2025 Lipid Panel 05/19/2028 05/20/[address] [place] [id number] BLUE CROSS/BLUE SHIELD
--- OUTSIDE RECORDS SUMMARY | 2025-02-19 07:25 | XMS_ITS | Encounter Summary ---
Author Organization [facility] Address [address] [place] [address] Care Team Providers Care Clerk Of Court Name Role Phone Edson Jones MD Primary Care Provider [phone] Reason for Visit * Reason Comments Med Refill Encounter Details Date Type Department Care Team (Late st Contact Info) Description 08/18/2023 Refill [facility] [address] [place] [address] Soledad Wei [address] [place], [place] [id number] Essential hypertension; SHELDON (generalized anxiety disorder); Panic [...] Description 03/27/2025 3:45 PM EST Office Visit [facility] [address] [address] Otoniel Krishnamurthy DO [address] [phone] documented as of this encounter Visit Diagnoses Diagnosis Essential hypertension Unspecified essential hypertension SHELDON (generalized anxiety disorder) Generalized anxiety disorder Panic attack Panic disorder without agoraphobia documented in this encounter Care Teams Clerk Of Court Relationship Specialty Start Date End Date Edson Jones MD [address] [place] [address] PCP - General Family Medicine 10/07/22 documented as of this encounter
--- OUTSIDE RECORDS SUMMARY | 2025-02-19 07:25 | XMS_ITS | Encounter Summary ---
[facility] Address [address] [id number] Care Team Providers Care Failure Analysis Engineer Name Role Phone Edson Jones MD Primary Care Provider [phone] Reason for Visit * Reason Comments Med Refill Encounter Details Date Type Department Care Team (Late Contact Info) Description 12/31/2024 Refill [facility] [address] [place] [address] Edson Jones MD [address] [place], [place] [phone] Nausea Social History Tobacco Use Types Packs/Day [...] 03/27/2025 3:45 PM EST Office Visit [facility] [address] [phone] Otoniel Krishnamurthy DO [address] [phone] documented as of this encounter Visit Diagnoses Diagnosis Nausea Nausea alone documented in this encounter Care Teams Failure Analysis Engineer Relationship Specialty Start Date End Date Edson Jones MD [address] [place] [address] PCP - General Family Medicine 10/07/22 documented as of this encounter
--- OUTSIDE RECORDS SUMMARY | 2025-02-19 07:25 | XMS_ITS ---
Author Organization [facility] Address [address] [place] [address] Care Team Providers Care Patient Ambassador Name Role Phone Edson Jones MD Primary Care Provider [phone] Chronic Migraine - External Program Status:Disenrolled (Closed) Start date:06/04/2023 Enrollment date:06/04/2023 Enrollment reason:Referred by provider End date:01/25/2025 Close reason:Transfer of Care Linked medications:Ubrogepant (Discontinued) Linked problems:Migraine without aura and without status migrainosus, not intractable (Active) Overview External- Ubrelvy. Ubrelvy. 06/03- Pt still not sure if she wants to fill Ubrelvy in general. She said to send an rx to [facility] and keep on hold. 05/20- Spoke to pt, she wants to research Ubrelvy before letting us fill it. She seems skeptical of it and asked several questions like side effects, [facility], etc. At this time, she most likely will not fill med or fill at [facility]. Continued Care and Services Coordination
--- OUTSIDE RECORDS SUMMARY | 2025-02-19 07:25 | XMS_ITS | Encounter Summary ---
[facility] [address] [id number] Care Team Providers Care Tactical Response Group Officer Name Role Phone Edson Jones MD Primary Care Provider Encounter Details Date Type Department Care Team (Late Contact Info) Description 06/14/2024 Results Follow-Up [facility] [address] [place] [address] Edson Jones MD [address] [place] [address] Social History Tobacco Use Types [...] PM EST Office Visit [facility] [address] [address] Otoniel Krishnamurthy DO [address] [address] documented as of this encounter Visit Diagnoses Not on filedocumented in this encounter Care Teams Tactical Response Group Officer Relationship Specialty Start Date End Date Edson Jones MD [address] [place] [address] PCP - General Family Medicine 10/07/22 documented as of this encounter
--- OUTSIDE RECORDS SUMMARY | 2025-02-19 07:25 | XMS_ITS | Referral Summary ---
Author Organization [employer] ([place], [place], [place], [place], [place]) Address [address] [place] [address] Care Team Providers Care Densitometer Reader Name Role Phone Unavailable Primary Care Provider [...] Date Juan rded Speak language other than Colombian at home Not on file 06/19/2023 Want [...]
--- NOTE | 2025-02-19 07:29 | ECG_ITS ---
APPROVED REPORT Exam: Resting ECG HR:80 bpm ECG Measurements Heart Rate 80 AXES OR 145 P 44 QRSd 84 QRS 30 QT 364 T -1 QTc 400 Conclusion SINUS RHYTHM LOW QRS VOLTAGE IN PRECORDIAL LEADS [QRS DEFLECTION < 1.0 mV IN CHEST LEADS] POSSIBLE ANTERIOR MYOCARDIAL INFARCTION , OF INDETERMINATE AGE [30 ms Q WAVE IN V3/V4, OR R < 0.2 mV IN V4] ABNORMAL ECG Electronically signed by : THERESA VASQUEZ, 02/20/2025 16:01:42
[2025-02-19 07:30] LABS: Lactate Venous 1.9 mmol/L (0.4-2.0); VBG HCO3 27.6 mmol/L (23-30); VBG PH 7.33 mmol/L (7.31-7.41); VBG PO2 30.2 mmol/L (28-40)
[2025-02-19 07:32] LABS: VBG PCO2 53.4 mmol/L (35-51)
[2025-02-19] MEDS: LACTATED RINGERS 1000ML 500 ML 999 ML IV (07:38)
[2025-02-19 07:49] LABS: Albumin Level 4.3 g/dl (3.5-5.0); Chloride 103 mmol/L (98-107); Potassium 4.0 mmoL/L (3.5-5.1); Sodium 140 mmol/L (136-145)
[2025-02-19 07:51] LABS: Alanine Aminotransferase 18 U/L (12-78); Anion Gap 13.0 mEq/L (5-15); Aspartate Amino Transferase 29 U/L (14-36); Blood Urea Nitrogen 15 mg/dl (7-17); Carbon Dioxide 28 mmol/L (22.0-30.0); Creatinine Clearance Estimated 62 mL/min (50-200); Creatinine,Serum 0.90 mg/dl (0.52-1.04); Estimated Glomerular Filt Rate 64 ml/min (>60); GFR (African American) 78 ML/MIN (>60); Magnesium 2.2 mg/dl (1.6-2.3)
[2025-02-19 07:52] LABS: Lipase 59 U/L (23-300)
[2025-02-19 07:52] LABS: Albumin/Globulin Ratio 1.3 (1.1-1.8); Alkaline Phosphatase 88 U/L (38-126); Bilirubin,Total 0.5 mg/dl (0.2-1.3); Calcium 9.4 mg/dl (8.4-10.2); Globulin 3.3 g/dL (1.3-3.2); Glucose 120 mg/dl (74-100); Total Protein,Serum 7.6 g/dl (6.3-8.2)
[2025-02-19 07:57] LABS: C-Reactive Protein 10.6 mg/L (0-4)
[2025-02-19 08:06] LABS: Hematocrit 40.0 % (37.0-47.0); Hemoglobin 13.5 g/dL (12.2-16.2); Immature Granulocytes % 0.3 %; Mean Corpuscular HGB Conc 33.8 g/dL (31.8-35.4); Mean Corpuscular Hemoglobin 28.9 pg (27.0-31.2); Mean Corpuscular Volume 85.7 fl (81-99); Nucleated Red Blood Cells % 0 %; Platelet Count 276 K/mm3 (142-424); Red Blood Count 4.67 M/mm3 (4.20-5.40); Red Cell Distribution Width-SD 37.8 fL; White Blood Count 7.4 K/mm3 (4.8-10.8)
[2025-02-19] MEDS: SODIUM CHLORIDE 0.9% 10ML SYR (RAD ONLY) 10 ML IV (08:12)
[2025-02-19] MEDS: IOPAMIDOL-370 (76%);100ML BOTTLE 75 ML IV (08:12)
--- NOTE | 2025-02-19 08:16 | PC.NURSE ---
provider notified patient wants more pain medication
[2025-02-19] MEDS: HYDROMORPHONE 2MG/ML SYRINGE 0.5 MG IV (08:20)
[2025-02-19 08:38] LABS: Microscopic, Urine URINE MICROSCOPIC (MICROSCOPIC)
[2025-02-19 08:43] LABS: Hepatitis C Ab Qual. W/ RFX NEGATIVE (Negative)
[2025-02-19 08:45] LABS: Bilirubin,Urine Negative (Negative); Color,Urine YELLOW (Yellow); Glucose,Urine (UA) Negative (Negative); Ketones,Urine Negative (Negative); Leukocyte Esterase,Urine Negative (Negative); PH,Urine 6.0 (5.0-8.5); Protein,Urine Negative (Negative); Specific Gravity, Urine <= 1.005 (1.005-1.030); Urobilinogen,Urine 0.2 EU/dl (0.2)
[2025-02-19 09:08] LABS: Bacteria,Urine Trace /lpf; RBC,Urine Occasional #/hpf (0-3)
[2025-02-19] MEDS: KETOROLAC 15MG/ML VIAL 15 MG IV (09:49)
[2025-02-19] MEDS: PROCHLORPERAZINE 10MG/2ML VIAL 5 MG IV (09:51)
[2025-02-19] MEDS: AMPICILLIN SODIUM/SULBACTAM 3 GM in 0.9 % SODIUM CHLORIDE 100 ML IV (10:36)
== END 2025-02-19 12:15 | disposition home or self-care (01) ==
PROVIDERS: Emergency Provider Student in an Organized Health Care Education/Training Program; PCP Emergency Medicine
DX: K52.9 Noninfective gastroenteritis and colitis, unspecified (principal); Z79.899 Other long term (current) drug therapy; Z90.710 Acquired absence of both cervix and uterus
CPT/HCPCS: 74177; 80053; 81001; 82803; 83690; 83735; 85025; 85651; 86140; 86803; 87389; 93005; 96374; 96375; 99285; J0295; J0780; J1171; J1200; J1885; J2270; J2405; J7120; Q9967